=== PATIENT | male | born 1945 | race Caucasian/White ===

== ENCOUNTER 2018-10-07 10:07 | Outpatient (REF) | payer MEDICARE, SELFPAY ==
[2018-10-07 12:59] LABS: Anion Gap 7.2 mmol/L (3-11); BUN 13 mg/dL (7-18); CO2 28.8 mmol/L (21.0-32.0); CREATININE 0.85 mg/dL (0.70-1.30); Calcium 8.9 mg/dL (8.5-10.1); Chloride 105 mmol/L (98-107); Glucose 91 mg/dL (70-100); Magnesium 1.7 mg/dL (1.8-2.4); Potassium 4.7 mmol/L (3.5-5.1); Sodium 141 mmol/L (136-145)
[2018-10-07 16:42] LABS: Iron 105 ug/dL (50-175); Total Iron Binding Capacity 255 ug/dL (250-450); Transferrin Sat 41 % (20-55)
== END 2018-10-07 10:27 ==
LOC: LBN 10:07
PROVIDERS: PCP Family Medicine; Visit Provider Family Medicine
DX: I10 Essential (primary) hypertension; D12.6 Benign neoplasm of colon, unspecified; R25.2 Cramp and spasm
CPT/HCPCS: 80048; 83540; 83550; 83735

== ENCOUNTER 2019-11-05 05:06 | Outpatient (CLI) | payer MEDICARE, SELFPAY ==
[2019-11-05 11:13] LABS: Hemoglobin A1C 5.7 % (<5.7)
[2019-11-05 11:41] LABS: C-Reactive Protein 0.05 mg/dL (0.0-0.3)
[2019-11-05 11:50] LABS: ALT 25 U/L (16-63); AST 22 U/L (15-37); Albumin 3.6 g/dL (3.4-5.0); Alkaline Phosphatase 58 U/L (46-116); Anion Gap 4.1 mmol/L (3-11); BUN 16 mg/dL (7-18); Bilirubin, Total 0.6 mg/dL (0.2-1.0); CO2 33.9 mmol/L (21.0-32.0); CREATININE 0.82 mg/dL (0.70-1.30); Calcium 8.8 mg/dL (8.5-10.1); Chloride 104 mmol/L (98-107); Glucose 84 mg/dL (74-106); Magnesium 1.7 mg/dL (1.8-2.4); Potassium 4.4 mmol/L (3.5-5.1); Sodium 142 mmol/L (136-145); TSH (W/Ref FT4) 2.12 uIU/mL (0.36-3.74); Total Protein 6.3 g/dL (6.4-8.2)
[2019-11-06 09:31] LABS: Prealbumin 22 mg/dL (20-40)
== END 2019-11-05 05:26 ==
PROVIDERS: PCP Family Medicine; Visit Provider Family Medicine
DX: E11.9 Type 2 diabetes mellitus without complications (principal); R63.4 Abnormal weight loss; R25.3 Fasciculation
CPT/HCPCS: 36415; 80053; 83036; 83735; 84134; 84443; 86140

== ENCOUNTER → 2019-12-10 13:56 | Outpatient (BNVA) | payer MEDICARE, OTHER, SELFPAY | PROVIDERS: PCP Family Medicine; Referring Provider Family Medicine; Visit Provider Nurse Practitioner Gerontology | DX: R33.8 Other retention of urine (principal); Z46.6 Encounter for fitting and adjustment of urinary device; I10 Essential (primary) hypertension | CPT/HCPCS: 51702; 81003; 99203; 87086 ==

== ENCOUNTER 2019-12-10 15:46 | Outpatient (REF) | payer MEDICARE, OTHER, SELFPAY | END 2019-12-10 16:06 | LOC: LBO 15:46 | PROVIDERS: PCP Family Medicine; Visit Provider Family Medicine | DX: R39.198 Other difficulties with micturition (principal) | CPT/HCPCS: 87086 ==

== ENCOUNTER → 2019-12-17 08:26 | Outpatient (BNVA) | payer MEDICARE, OTHER, SELFPAY | PROVIDERS: PCP Family Medicine; Referring Provider Family Medicine; Visit Provider Nurse Practitioner Gerontology | DX: R33.8 Other retention of urine (principal); I10 Essential (primary) hypertension; E11.9 Type 2 diabetes mellitus without complications; Z46.6 Encounter for fitting and adjustment of urinary device | CPT/HCPCS: 99203 ==

== ENCOUNTER → 2019-12-19 09:50 | Outpatient (BNVA) | payer MEDICARE, OTHER, SELFPAY | PROVIDERS: PCP Family Medicine; Referring Provider Family Medicine; Visit Provider Urology | DX: R33.8 Other retention of urine (principal); Z46.6 Encounter for fitting and adjustment of urinary device | CPT/HCPCS: 51702; 99213 ==

== ENCOUNTER → 2019-12-25 08:57 | Outpatient (BNVA) | payer MEDICARE, OTHER, SELFPAY | PROVIDERS: PCP Family Medicine; Referring Provider Family Medicine; Visit Provider Urology | DX: R33.8 Other retention of urine (principal); Z46.6 Encounter for fitting and adjustment of urinary device; I10 Essential (primary) hypertension | CPT/HCPCS: 51702; 99213 ==

== ENCOUNTER 2020-01-05 07:29 | Outpatient (CLI) | payer MEDICARE, OTHER, SELFPAY ==
[2020-01-06 15:35] LABS: SARS-CoV-2 RNA Not Detected (NotDetected); SARS-CoV-2 RNA Source Nasal/Nares
== END 2020-01-05 07:49 ==
PROVIDERS: PCP Family Medicine; Visit Provider Urology
DX: Z01.818 Encounter for other preprocedural examination (principal); Z11.59 Encounter for screening for other viral diseases
CPT/HCPCS: U0003

== ENCOUNTER 2020-01-08 06:13 | Inpatient (IN) | payer MEDICARE, OTHER, SELFPAY ==
[2020-01-08] VITALS (13 sets, daily range): BP systolic 106–148; BP diastolic 58–90; PULSE 66–89; RESP 12–28; TEMP 35.9–37; O2SAT 86–100
--- NOTE | 2020-01-08 06:58 | HPE_ITS ---
Date of service: 01/08/20 Time of Service: 06:58 Assessment and Plan Assessment and plan (1) Urinary retention: Status: Acute Assessment and plan: For cystoscopy with transurethral resection of the prostate. I would expect him to remain in the hospital overnight for acute irrigation. History of Present Illness History of Present Illness Chief Complaint: Urinary retention Narrative: This is a 74-year-old gentleman with lower urinary tract symptoms that were treated with alpha-nigel. He went into urinary retention and we increased his dose to the alpha-nigel. He was still unable to void, so he presents now for transurethral resection of the prostate. He was unable to perform CIC, so he has an indwelling urethral catheter. Review of Systems Narrative: No fevers or chills. c/o unexplained weight loss. No vision change or dysphasia No thyroid dysfunction. Hx diabetes No shortness of breath, cough or hemoptysis No chest pain or palpitations No nausea, vomiting, hepatitis, ulcers, jaundice, diarrhea or constipation No seizures, strokes or peripheral neuropathy No bleeding disorders or anemia No gout PFSH Medical History Adenomatous colon polyp adenoma at 70 cm, also at transverse 2009, Fede Dorado; 02/2016: 11 of 11 polyps adenomatous (Dr. Morgan) Allergic asthma without complication (05/25/11) normal PFT 2003; h/o wheezing with occupational and seasonal exposures Dermatitis (09/14/14) ankle, chronic R>L Essential hypertension (07/03/00) rx begun 2000 BP 142/90 and ? of prior TIA Hyperlipidemia LDL goal <100 (03/05/02) Rx begun 2002 for vasc risk calculated 10% plus h/o ? TIA (diplopia 1997), pos FH; goal LDL 100 Lower urinary tract symptoms (LUTS) (11/13/07) urgency, nocturia varies Obesity (BMI 30-39.9) (01/04/15) stable at 35 (wt 220) Seborrheic dermatitis (09/14/14) wade, face, ear Urinary retention Vitamin D deficiency Surgical History (Updated 01/08/20 @ 06:20 by Nan Toledo RN) History of colonoscopy History of facial surgery due to chain saw accident. Family History Mother Diabetes Alzheimer's dementia Father Myocardial infarction Sister No problems noted. Sister No problems noted. Brother Diabetes Brother No problems noted. Brother No problems noted. Social History Smoking/Tobacco Use Status: Never Smoking risk assessment performed?: Yes Alcohol Intake: never Drug use: Never Adopted: No Household members: spouse Housing: house Number of Children: 2 number of grandchildren: 2 Communication Needs: Corrective Lenses Do you need help understanding health information?: Rarely current occupation: retired Current gender identity: male What is your relationship status?: How often do you talk on the phone with friends or family?: twice per week How often do you get together with friends or relatives?: decline to answer How often do you attend shinto or presybeterian services?: decline to answer Do you belong to any clubs or organized social groups?: no Panel score (0-1 are the most socially isolated patients): 1 What type of physical activity do you participate in: walking Duration: 15-30 minutes/day Frequency: daily Seatbelt use: always Helmet use: No Drive intox or ride w/intox 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 Working smoke detector in home: Yes Carbon monox detector in home: Yes Do you feel safe at home: Yes Do you feel safe in your relationship?: Yes Meds Home Medications and Allergies Home Medications Medication Instructions Recorded Confirmed Type aspirin 81 mg PO DAILY tab 06/28/12 01/08/20 History peg 400-propylene glycol [Systane 5 ml OPHTHALMIC DAILY 09/08/13 01/08/20 History 0.3-0.4% Eye Drops] blood-glucose meter [Onetouch #1 kit 07/31/15 01/06/20 History Ultramini] Ketoconazole 15 gm TOPICAL BID #4 tube 08/07/17 01/08/20 Clinic acetaminophen 1,000 mg PO Q8H PRN #90 tab-cap 08/07/17 01/08/20 Rx MDD 3000 cetirizine [Zyrtec] 10 mg PO DAILY PRN #90 tab 08/07/17 01/08/20 History docusate sodium 200 mg PO DAILY PRN #180 cap 08/07/17 01/08/20 History triamcinolone acetonide 1 wilma TOPICAL BID #454 gm 08/07/17 01/08/20 Rx cholecalciferol (vitamin D3) 50 2,000 unit PO DAILY 10/07/18 01/08/20 History mcg (2,000 unit) capsule blood sugar diagnostic #100 each 11/18/18 01/06/20 Rx lancets 33 gauge #100 ea 11/18/18 01/06/20 Rx lisinopril 10 mg tablet 10 mg PO DAILY #90 tab 07/29/19 01/08/20 Rx metformin 500 mg tablet,extended 1,000 mg PO BID #180 tab-cap 07/29/19 01/08/20 Rx release 24 hr simvastatin 40 mg tablet 40 mg PO DAILY #90 tab-cap 07/29/19 01/08/20 Rx albuterol sulfate 90 mcg/actuation 2 puff IH Q6H PRN #18 gm 11/04/19 01/08/20 Rx aerosol inhaler Allergies Allergy/AdvReac Type Severity Reaction Status Date / Time yellow jacket venum Allergy Severe anaphylaxis Uncoded 01/08/20 06:20 Exam Const General: cooperative, comfortable and no acute distress Neck Neck: supple Resp Effort & Inspection: normal respiratory effort Auscultation: clear to auscultation bilaterally Cardio Rate: regular rate Rhythm: regular rhythm GI Palpation: soft and no masses Neuro General: patient alert, patient awake and patient oriented x3 Results Last Vital Signs Temp 36.4 C L 01/08/20 06:16 Pulse 73 01/08/20 06:16 Resp 18 01/08/20 06:16 BP 135/72 01/08/20 06:16 Pulse Ox 98 01/08/20 06:16 COVID-19 Screening Have you,or household,traveled outside [place] in last 14 days?: No Had IN PERSON contact w/suspected or confirmed C-19 person: No
[2020-01-08] MEDS: Lactated Ringers 1,000 ML 80 ML IV ×2 (07:01→10:17)
[2020-01-08] MEDS: GENTAMICIN 120 MG in Normal Saline 100 ML 206 MG IVPB (07:21)
[2020-01-08] MEDS: ceFAZolin 2 GM/50 ML BAG IVPB (07:48)
--- NOTE | 2020-01-08 08:40 | PROST_PTH ---
PATIENT: Robert Alarcon LOC: U#:[id number] AGE/SX: 74/M ROOM: RE01/08/[address]: Timoteo Ordoñez MD : [id number] BED: A DIS: 01/09/2020 SPEC #: [id number] RECD: 01/08/20 12:17 STATUS: SOUT REQ #: [id number] SWETHA: 01/08/20 08:[address]: Timoteo Ordoñez DEPT: Surgical Specimen RECD BY: Marlyn Roberts ENTERED: 01/08/20 12:18 SP TYPE: PROST OTHR DR: Simon Marshall DO Tissues: 1 - PROSTATE CURRETTINGS Procedures: GROSS AND MICRO LEVEL 6 Comments: [id number]
--- NOTE | 2020-01-08 08:56 | W.PM.OP ---
Date of service: 01/08/20 Time of Service: 08:56 Operative Note Operative Note DATE OF PROCEDURE: 01/08/20 PRE-OP DIAGNOSIS: Urinary retention POST-OP DIAGNOSIS: same with pathology pending PROCEDURE: Cystoscopy, transurethral resection of prostate, vaporization of the prostate with bipolar cautery SURGEON: Timoteo Ordoñez ANESTHESIA: BARTOLO ESTIMATED BLOOD LOSS: 200 PATHOLOGY: other (Prostate chips) COMPLICATIONS: None Patient was transported to: PACU Patient's condition: stable Implants: 24 [place] hematuria catheter with 30 cc of sterile water in balloon Indications: Urinary retention refractory to medical management Findings: Trilobar prostate hypertrophy with a prominent median lobe Procedure Description: The patient was brought to the operating room on 01/08/2020. After successful induction of general anesthesia, he was placed in the dorsal lithotomy position. His indwelling catheter was removed. He was given preoperative broad-spectrum IV antibiotics. His genitalia was then prepped and draped. 2% Xylocaine jelly was instilled into the urethra. A 26 B[place]udian resectoscope sheath was passed through the urethra into the bladder. We used a visual obturator and a 30 degree lens to visualize the urethra and bladder. The pendulous, bulbous and membranous urethra was all appeared normal with no strictures. The prostatic urethra showed trilobar hypertrophy with lateral lobe impingement and a prominent median lobe jutting back into the bladder. The bladder itself was mildly trabeculated with no papillary or nodular lesions visualized. No stones were seen. The visual obturator was removed and was replaced with an iBid2Save resectoscope. We resected the prostate from the bladder neck to the verumontanum using bipolar cautery. Our first maneuver was to take down the median lobe. We continued our resection down to the level of the prostatic capsule. Once we approached the prostatic capsule, we switched over to the plasma button and cauterized and vaporize the remaining prostate down to the capsule. At the completion of the procedure, no arterial bleeding was seen. All resected chips were evacuated and sent to pathology for permanent section. The bladder was filled with irrigant. The scope was removed. A 24 [place] hematuria catheter was passed through the urethra into the bladder. The catheter balloon was inflated with 30 cc of sterile water. Continuous bladder irrigation with saline was begun. Traction was placed on the catheter until the irrigant was clear. The patient tolerated this procedure well with no complications. Our estimated blood loss was 200 cc. He was taken to the recovery room in stable condition.
--- NOTE | 2020-01-08 11:19 | NUR.NOTE ---
Nursing Note: Pt admitted to room 210 from PACU. Pt A&Ox3, but sleepy. 3 way vargas running, clear. VSS, see worklist. HR reg, LS clear. dentures in cup @ bedside.
[2020-01-08] MEDS: ceFAZolin 1 GM/50 ML BAG IVPB ×2 (15:12→21:57)
[2020-01-08] MEDS: metFORMIN C.R. 500 MG TABCR 1000 MG PO (17:06)
[2020-01-08] MEDS: Docusate Sodium 100 MG CAP PO (20:44)
[2020-01-08] MEDS: Simvastatin 40 MG TAB PO (20:45)
[2020-01-08] MEDS: Ketoconazole 2% CREAM 15 GM TUBE TP (20:45)
[2020-01-08] MEDS: Lactated Ringers 1,000 ML 100 ML IV (21:56)
[2020-01-09] MEDS: ceFAZolin 1 GM/50 ML BAG IVPB (05:36)
[2020-01-09 06:40] LABS: HCT 39.5 % (40.0-50.0); HGB 12.3 g/dL (13.5-17.5); MCH 30.5 pg (27.0-33.0); MCHC 31.1 % (32.0-36.0); MPV 10.4 fL (8.0-11.0); Platelet Count 227 10^3/uL (130-400); RBC 4.03 10^6/uL (4.36-5.78); RDW 12.7 % (11.8-14.1); RDW-SD 46.1 fL; WBC 11.09 10^3/uL (4.4-10.8)
[2020-01-09 06:59] LABS: Anion Gap 0.7 mmol/L (3-11); BUN 15 mg/dL (7-18); CO2 37.3 mmol/L (21.0-32.0); CREATININE 0.91 mg/dL (0.70-1.30); Calcium 8.2 mg/dL (8.5-10.1); Chloride 103 mmol/L (98-107); Glucose 98 mg/dL (74-106); Potassium 4.8 mmol/L (3.5-5.1); Sodium 141 mmol/L (136-145)
--- NOTE | 2020-01-09 07:18 | W.PM.DS.N ---
Date of service: 01/09/20 Time of Service: 07:18 DS: Diagnosis Discharge Diagnosis (1) Urinary retention: Status: Acute Discharge Plan Disposition Patient Disposition: HOME Condition: Stable Discharge Details Reason For Visit: TURP Admit Date/Time: 01/08/20 06:13 Admit Provider: Timoteo Ordoñez Attending Provider: Timoteo Ordoñez Primary Care Provider: Simon Marshall [facility] Course Hospital Course: The patient was admitted and brought to the operating room on 01/08/2020 where he underwent a transurethral resection of the prostate under general anesthetic. An irrigating catheter was left in place postoperatively. Continuous bladder irrigation was maintained overnight. On the following morning, the irrigant was clear so we discontinued the irrigation and plugged his irrigation port. We hooked his catheter to a leg bag and he is being discharged to home. Home Meds and New Rx's Prescriptions: New tramadol 50 mg Tablet 50 mg PO Q6H PRN PRNQty: 10 RF: 0 cephalexin [Keflex] 500 mg capsule 500 mg PO QHS Qty: 5 RF: 0 No Action albuterol sulfate [ProAir HFA] 90 mcg/actuation HFA aerosol inhaler 2 puff IH Q6H PRN (Reason: shortness of breath or wheezing) Qty: 18 RF: 6 cholecalciferol (vitamin D3) 2,000 unit capsule 2,000 unit PO DAILY RF: 0 aspirin 81 MG tablet,delayed release (DR/EC) 81 mg PO DAILY RF: 0 Systane (propylene glycol) 5 ML drops 5 ml Ophthalmic DAILY RF: 0 (DME) blood-glucose meter [[employer]ink[employer]uch UltraMini] 1 EACH kit 1 ea Miscellaneous DAILY Qty: 1 RF: 0 cetirizine [Zyrtec] 10 MG tablet 10 mg PO DAILY PRNQty: 90 RF: 3 acetaminophen 500 MG tablet 1,000 mg PO Q8H PRN MDD 3000 Qty: 90 RF: 0 triamcinolone acetonide 15 GM cream 1 wilma Topical BID Qty: 454 RF: 3 docusate sodium 100 MG capsule 200 mg PO DAILY PRNQty: 180 RF: 3 Ketoconazole 15 GM CREAM..G. 15 gm Topical BID Qty: 4 RF: 3 (DME) OneTouch Ultra Blue Test Strip Strip See Dose Instructions .ROUTE .MEDSUPPLY Qty: 100 RF: 6 (DME) lancets [OneTouch Delica Lancets] 33 gauge misc 1 ea Miscellaneous DAILY Qty: 100 RF: 6 lisinopril 10 mg tablet 10 mg PO DAILY Qty: 90 RF: 3 metformin 500 mg tablet extended release 24 hr 1,000 mg PO BID Qty: 180 RF: 3 simvastatin 40 mg tablet 40 mg PO DAILY Qty: 90 RF: 3 Discharge Instructions Additional Instructions: Catheter plug to irrigation port Catheter drainage to leg bag Follow-up in my office Sunday or Sunday for catheter removal Follow-up appointment with me in 1 to 2 weeks to review surgical pathology Activity:: No lifting over 10 pounds Equipment/Supplies:: Gonzalez to leg bag Diet:: As Tolerated Discharge Orders Discharge Orders: Discharge Order (Routine); Ordered 01/09/20 Ordered By: Timoteo Ordoñez DS: Summary Status at Discharge Functional status at discharge: independent ambulation Overall status at discharge: patient is back to baseline Mental Status: mental status grossly normal Speech and Movement: speech and movement normal Mood: congruent mood Affect: normal affect Exam Narrative Exam Narrative: On postoperative day #1, he looks well. He does not appear septic or toxic His vital signs are documented elsewhere His lungs are clear Cardiac exam shows a regular rate and rhythm His abdomen is soft with no mass His urine is clear in his catheter bag He is awake and alert Psych Mental Status: mental status grossly normal Speech and Movement: speech and movement normal Mood: congruent mood Affect: normal affect DS: Data Vitals/I&O Vitals and I&O: Vital Signs Temperature 37 C 01/08/20 23:01 Temperature Source Temporal Artery Scan 01/08/20 23:01 Pulse 86 01/08/20 23:01 Pulse Rhythm Regular 01/09/20 06:10 Respiratory Rate 16 01/08/20 23:01 Respiratory Effort Non-Labored 01/09/20 06:10 Respiratory Depth Normal 01/09/20 06:10 Respiratory Pattern Normal 01/09/20 06:10 Blood Pressure 117/64 01/08/20 23:01 Pulse Oximetry 86 L 01/08/20 23:01 Respiratory End-tidal CO2 40 01/08/20 09:51 Oxygen Delivery Method Room Air 01/08/20 23:01 Oxygen Flow Rate 0 01/08/20 23:01 Pain Level 0 01/08/20 23:01 Comment 01/08/20 23:01 Intake & Output 01/08/20 01/08/20 01/09/20 11:59 23:59 11:59 Intake Total 1065.000 / 2810.333 1745.333 / 2810.333 250 / 250 Balance 1065.000 / 2810.333 1745.333 / 2810.333 250 / 250 Weight 70.1 kg Intake: IV 1065.000 / 2090.333 1025.333 / 2090.333 Oral 720 / 720 250 / 250 Other: Urine Color Pale Pale [place] Urine Appearance Clear Clear Clear Comment running Emesis Description None Data Completed and Pending Labs on day of discharge: Labs from last 24 hours 01/09/20 01/09/20 06:20 06:20 WBC 11.09 H RBC 4.03 L Hgb 12.3 L Hct 39.5 L MCV 98.0 H MCH 30.5 MCHC 31.1 L RDW 12.7 Plt Count 227 MPV 10.4 Sodium 141 Potassium 4.8 Chloride 103 Carbon Dioxide 37.3 H Anion Gap 0.7 L BUN 15 Creatinine 0.91 Estimated GFR/1.73 m2 >= 60.00 Glucose 98 Calcium 8.2 L PFSH Medical History Adenomatous colon polyp adenoma at 70 cm, also at transverse 2009, Fede Dorado; 02/2016: 11 of 11 polyps adenomatous (Dr. Morgan) Allergic asthma without complication (05/25/11) normal PFT 2003; h/o wheezing with occupational and seasonal exposures Dermatitis (09/14/14) ankle, chronic R>L Essential hypertension (07/03/00) rx begun 2000 BP 142/90 and ? of prior TIA Hyperlipidemia LDL goal <100 (03/05/02) Rx begun 2002 for vasc risk calculated 10% plus h/o ? TIA (diplopia 1997), pos FH; goal LDL 100 Lower urinary tract symptoms (LUTS) (11/13/07) urgency, nocturia varies Obesity (BMI 30-39.9) (01/04/15) stable at 35 (wt 220) Seborrheic dermatitis (09/14/14) wade, face, ear Urinary retention Vitamin D deficiency Surgical History History of colonoscopy History of facial surgery due to chain saw accident. Family History Mother Diabetes Alzheimer's dementia Father Myocardial infarction Sister No problems noted. Sister No problems noted. Brother Diabetes Brother No problems noted. Brother No problems noted. Social History Smoking/Tobacco Use Status: Never Smoking risk assessment performed?: Yes Alcohol Intake: never Drug use: Never Adopted: No Household members: spouse Housing: house Number of Children: 2 number of grandchildren: 2 Communication Needs: Corrective Lenses Do you need help understanding health information?: Rarely current occupation: retired Current gender identity: male What is your relationship status?: How often do you talk on the phone with friends or family?: twice per week How often do you get together with friends or relatives?: decline to answer How often do you attend mandaeism or uatsdin services?: decline to answer Do you belong to any clubs or organized social groups?: no Panel score (0-1 are the most socially isolated patients): 1 What type of physical activity do you participate in: walking Duration: 15-30 minutes/day Frequency: daily Seatbelt use: always Helmet use: No 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
[2020-01-09] MEDS: Lisinopril 10 MG TAB PO (08:04)
[2020-01-09] MEDS: Cholecalciferol (Vitamin D3) 1,000 UNIT TAB 2000 UNITS PO (08:04)
[2020-01-09] MEDS: Docusate Sodium 100 MG CAP PO (08:04)
[2020-01-09] MEDS: metFORMIN C.R. 500 MG TABCR 1000 MG PO (08:05)
[2020-01-09] MEDS: Normal Saline Flush 10 ML SYR IV (08:05)
[2020-01-09] MEDS: Refresh PLUS Eye Drops 0.4ml OP (08:06)
[2020-01-09 08:12] VITALS: BP 118/78; PULSE 74; RESP 17; TEMP 36.5; O2SAT 86
== END 2020-01-09 10:54 | disposition home or self-care (01) | DRG 714 ==
LOC: PDS 06:21 → MS 10:24
PROVIDERS: Admitting Provider Urology; PCP Family Medicine; Visit Provider Urology
PROC: 0VT08ZZ Resection of Prostate, Via Natural or Artificial Opening Endoscopic (ICD-10-PCS; CPT 52601; principal; 2020-01-08 07:30)
DX: N40.1 Benign prostatic hyperplasia with lower urinary tract symptoms (principal); R33.9 Retention of urine, unspecified; I10 Essential (primary) hypertension; L21.8 Other seborrheic dermatitis; E55.9 Vitamin D deficiency, unspecified; E78.5 Hyperlipidemia, unspecified; J45.909 Unspecified asthma, uncomplicated; E11.9 Type 2 diabetes mellitus without complications
CPT/HCPCS: 52601; 36415; 80048; 85027; 88305; NC; 88309; J0690; J1100; J1580; J1885; J2405; J2704; J3490

== ENCOUNTER → 2020-01-13 08:26 | Outpatient (BNVA) | payer MEDICARE, OTHER, SELFPAY | PROVIDERS: PCP Family Medicine; Referring Provider Family Medicine; Visit Provider Nurse Practitioner Gerontology | DX: R33.8 Other retention of urine (principal); Z46.6 Encounter for fitting and adjustment of urinary device; I10 Essential (primary) hypertension | CPT/HCPCS: 99213 ==

== ENCOUNTER → 2020-01-23 14:45 | Outpatient (BNVA) | payer MEDICARE, OTHER, SELFPAY | PROVIDERS: PCP Family Medicine; Referring Provider Family Medicine; Visit Provider Urology | DX: Z48.816 Encounter for surgical aftercare following surgery on the genitourinary system (principal); R33.8 Other retention of urine; I10 Essential (primary) hypertension ==

== ENCOUNTER 2020-02-19 02:00 | Outpatient (CLI) | payer MEDICARE, OTHER, SELFPAY ==
[2020-02-19 10:47] LABS: Abs Immature Grans 0.01 10^3/uL (0.0-0.06); Absolute Basophil Count 0.05 10^3/uL (0.0-0.2); Absolute Eosinophil Count 0.29 10^3/uL (0.0-0.7); Absolute Lymphocyte Count 1.11 10^3/uL (1.2-3.4); Absolute Monocyte Count 0.44 10^3/uL (0.1-0.8); Absolute Neutrophil Count 2.72 10^3/uL (1.2-6.7); Basophils % 1.1; Eosinophils % 6.3; HCT 44.9 % (40.0-50.0); HGB 13.9 g/dL (13.5-17.5); Immature Grans % 0.2; MCH 30.4 pg (27.0-33.0); MCV 98.2 fL (80-95); MPV 10.6 fL (8.0-11.0); Monocytes % 9.5; Neutrophils % 58.9; Nucleated RBC 0 %; Platelet Count 223 10^3/uL (130-400); RBC 4.57 10^6/uL (4.36-5.78); RDW-SD 46.4 fL; WBC 4.62 10^3/uL (4.4-10.8)
[2020-02-19 12:05] LABS: ALT 16 U/L (16-63); AST 15 U/L (15-37); Albumin 3.6 g/dL (3.4-5.0); Alkaline Phosphatase 58 U/L (46-116); Anion Gap 1.8 mmol/L (3-11); BUN 23 mg/dL (7-18); Bilirubin, Total 0.5 mg/dL (0.2-1.0); CO2 39.2 mmol/L (21.0-32.0); CREATININE 0.85 mg/dL (0.70-1.30); Chloride 101 mmol/L (98-107); Glucose 119 mg/dL (74-106); Lipase 141 U/L (73-393); Potassium 4.6 mmol/L (3.5-5.1); Sodium 142 mmol/L (136-145); Total Protein 6.4 g/dL (6.4-8.2)
[2020-02-19 12:46] LABS: Folate 11.5 ng/mL (8.6-20.0); Vitamin B12 241 pg/mL (193-986)
[2020-02-20 09:57] LABS: Prealbumin 19 mg/dL (20-40)
== END 2020-02-19 02:20 ==
PROVIDERS: PCP Family Medicine; Visit Provider Family Medicine
DX: D53.9 Nutritional anemia, unspecified (principal); R63.4 Abnormal weight loss
CPT/HCPCS: 36415; 80053; 83690; 82607; 82746; 84134; 85025; 86140

== ENCOUNTER 2020-03-15 01:29 | Outpatient (CLI) | payer MEDICARE, OTHER, SELFPAY ==
--- NOTE | 2020-03-15 07:00 | DI.CT_ITS ---
EXAM: CT CHEST/ABD/PEL W CLINICAL HISTORY: Abnormal weight loss,early satiety, GI malignancy?. TECHNIQUE: Imaging Protocol: Axial computed tomography images with coronal and sagittal reformatted images were created and reviewed CONTRAST MATERIAL: Intravenous: Omnipaque 350 Contrast volume:90 Oral: Yes COMPARISON: No exams were available for comparison FINDINGS: CHEST: LUNGS: In the right lung there is a small 3 millimeter calcified granuloma the superior segment right lower lobe. Mild atelectasis is noted in the right lung base. No pleural effusion.. In the opposite-left lung there is mild atelectasis anterior basal segment. No pleural effusions. There are no significant focal findings in the trachea and mainstem bronchi. MEDIASTINUM: There is no hilar nor mediastinal adenopathy. Visualized thyroid unremarkable. CARDIAC: Heart size is normal. There is no pericardial effusion.Caliber of the thoracic aorta is wit hin normal limits. OSSEOUS: No significant osseous lesions.. ABDOMEN: There is no ascites. LIVER: Liver is mildly hypodense implying an element of steatosis. However, there is no discrete brad nous focal hepatic lesions identified. GALLBLADDER/BILIARY: No obvious gallbladder pathology. CBD is not dilated. PANCREAS: No evidence of pancreatic mass nor dilatation of the pancreatic duct. SPLEEN: Spleen is not enlarged. There are no intrasplenic lesions. Splenic and portal veins are alexander nt. ADRENALS: There are no significant adrenal masses. KIDNEYS: No calculi nor hydronephrosis. No solid renal masses. No cysts evident. ABDOMINAL AORTA: Abdominal aorta is not enlarged and there is no iycvzpanjzipnmr-hovm-cdzbii adenopat hy. IVC: There is an anatomic variant here. 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 The common iliac veins do not joint up but instead ascend independently in both size of the aorta. The left IVC drains into the left magdalena al vein, as is usually the case. ABDOMINAL WALL/GI: No evidence of significant anterior abdominal wall hernia. No bowel obstruction. PELVIS: LYMPH NODES: There is no intrapelvic nor inguinal adenopathy. GI: No evidence of appendicitis.No evidence of sigmoid diverticulitis. URINARY BLADDER: Bladder wall is uniformly thickened. This may be in part due to distension but also chronic cystitis. There are no diverticula in the bladder. REPRODUCTIVE: Prostate gland is enlarged and exhibits a probable TURP defect. OSSEOUS: No significant osseous lesions. Chronic degenerative disc disease L5-S1. IMPRESSION: 1. Mild chest findings as described above.. No ominous lung nodules. No pleural effusions. No sign ificant intrathoracic adenopathy. 2. Mild hepatic steatosis. No discrete focal hepatic lesions. 3. No ascites nor intrathoracic adenopathy. 4. Urinary bladder wall is uniformly thickened and the prostate gland is enlarged and exhibits probab le TURP defect. Probable chronic cystitis. There are no diverticuli in the bladder noted. RADIATION DOSE DELIVERED: 1,286.01mGy.cm Total DLP DATA REPOSITORY: All CT scans at this facility are submitted to the National Radiology Data Registry (NRDR) Dose Index Registry (DIR) with the [employer] (A[employer]). RADIATION OPTIMIZATION: All CT scans at this facility use at least one of these dose optimization te chniques: automated exposure control; mA and/or kV adjustment per patient size (includes targeted exa ms where dose is matched to clinical indication); or iterative reconstruction.
[2020-03-15] MEDS: Omnipaque 350 MG/ML 50 ML BTL PO (07:21)
[2020-03-15] MEDS: Breeza Beverage 473 ML BTL PO (07:21)
[2020-03-15] MEDS: Omnipaque 350 MG/ML 100 ML BTL IJ (09:21)
[2020-03-15] MEDS: Normal Saline - Diluent 50 ML VIAL IV (09:21)
== END 2020-03-15 01:49 ==
PROVIDERS: PCP Family Medicine; Visit Provider Family Medicine
DX: K76.0 Fatty (change of) liver, not elsewhere classified (principal); N40.0 Benign prostatic hyperplasia without lower urinary tract symptoms; R63.4 Abnormal weight loss; J84.10 Pulmonary fibrosis, unspecified; J98.11 Atelectasis
CPT/HCPCS: 74177; 71260; J3490; Q9967

== ENCOUNTER 2020-03-19 12:10 | Inpatient (IN) | payer MEDICARE, OTHER, SELFPAY ==
[2020-03-19] VITALS (85 sets, daily range): BP systolic 89–142; BP diastolic 48–104; PULSE 61–129; RESP 11–33; TEMP 36.6–36.9; O2SAT 86–98
--- NOTE | 2020-03-19 12:15 | RT.EKG_ITS ---
APPROVED REPORT Exam: Resting ECG Patient Location: E HR:78 bpm ECG Measurements Heart Rate 78 AXIS ND 167 P 69 QRSd 87 QRS 71 QT 363 T 52 QTc 413 Conclusion Sinus rhythm...normal P axis, V-rate 60- 99
--- NOTE | 2020-03-19 12:30 | DI.CT_ITS ---
EXAM: CT HEAD - STROKE PROTOCOL CLINICAL HISTORY: mental status change. TECHNIQUE: Imaging Protocol: Axial computed tomography images with coronal and sagittal reformatted images were created and reviewed COMPARISON: CR XR PORTABLE CHEST AP from 03/19/2020 CR XR PORTABLE CHEST AP from 03/19/2020 FINDINGS: There are no skull fractures nor fluid in the visualized paranasal sinuses. There is no evidence of intracranial hemorrhage, mass effect, or shift of midline structures. There are no extra-axial fluid collections. The ventricles are not enlarged or shifted and there is no blo od within the ventricular system nor within the basal cisterns. IMPRESSION: No acute intracranial findings on this noninfused CT scan of the brain. Report called to ER RADIATION DOSE DELIVERED: 797.21mGy.cm Total DLP DATA REPOSITORY: All CT scans at this facility are submitted to the National Radiology Data Registry (NRDR) Dose Index Registry (DIR) with the [employer] (ACR). RADIATION OPTIMIZATION: All CT scans at this facility use at least one of these dose optimization te chniques: automated exposure control; mA and/or kV adjustment per patient size (includes targeted exa ms where dose is matched to clinical indication); or iterative reconstruction.
--- NOTE | 2020-03-19 12:48 | DI.RAD_ITS ---
EXAM: XR PORTABLE CHEST AP CLINICAL HISTORY: unresponsive. TECHNIQUE: 2D digital imaging was performed. COMPARISON: No exams were available for comparison FINDINGS: Heart size is normal. The mediastinum is not widened. Platelike atelectasis and mild increased markings are noted in the right lung base. Remainder of dariusz g tuttle appear clear. No pneumothorax. Tiny granuloma in the lateral right upper lobe noted. IMPRESSION: Mild increased markings in the right lung base consistent with platelike atelectasis. DATA REPOSITORY: RADIATION DOSE DELIVERED:
--- NOTE | 2020-03-19 12:51 | W.ED.GENAD ---
Discharge Plan Disposition Patient Disposition: [facility] INPATIENT Condition: Critical Discharge Details Clinical Impression: Respiratory failure, Motor neuron disease Admit Date/Time: 03/19/20 14:54 Admit Provider: Wild Garner Attending Provider: Wild Garner Primary Care Provider: Simon Marshall ED Provider: M[place]n [place] Medical Decision Making <JORGE Perez - Last Filed: 03/19/20 16:23> Patient initially obtunded. Blood glucose 120 initially. +able to follow several basic commands initially. sent for stroke protocol.neg ct brain. co2 .100 likely consistent with hypercarbia. Patient is DNR/DNI after discussion with , it was confirmed that patient is not full CODE STATUS. Patient would likely benefit from positive pressure, he was initiated on BiPAP, we did consider that she is obtunded and there is risk associated and confirms that she would like to proceed with the BiPAP and we will monitor patient quite closely The remainder of the diagnostics do not show acute pathology, he will benefit from admission to the hospital My suspicion for CVA is quite low but patient had a negative CTA and significant hypercarbia. Chest x-ray does not show acute pathology EKG not consistent with A. fib although patient has known history is agreeable to him being admitted to the hospital provided patient becomes more lucid with application of BiPAP All decisions are made in the presence of pH of 7.13, PCO2 greater than 100, PO2 150, carbon dioxide of 42.7 gap of 0.7, BUN of 31+ Patient blood pressure approximately 1545 became hypotensive, 70/40, 1 L bolus was administered and patient blood pressure the came 108/80, he subsequently developed some bradycardia, distal sinus bradycardia without evidence of heart block After consultation with my attending physician, turned positive BiPAP pressure down from 15-13 over 5 and patient actually is now in a regular sinus rhythm His mentation has mildly improved I did relay the results to admitting hospitalist, Dr. Henry via pager and agreeable to admission I reconfirmed with regarding CODE STATUS and at this time she would like to maintain the DNR status Blood pressure at time of transfer to ICU laterally over 62, heart rate 62+ Case discussed with Dr Roger, attending physician <Akira Roger MD - Last Filed: 03/19/20 13:05> Patient seen, independently examined [id number], and discussed with Ms. Durans. I agree with their assessment and plan. HPI <JORGE Perez - Last Filed: 03/19/20 16:23> 74-year-old gentleman with recent diagnosis of ALS, diabetes, atrial fibrillation, asthma, essential hypertension, urinary tract infection and Eliquis dependent, presents with reported hypoxia and possible alteration of mental for which began at an unknown time. states patient he was very delayed communicative. She denies any known falls or injuries. She denies any new medications. She states that he was heavily according prostate surgery several months ago. She does states she was able to bring him to a neurology appointment today and secondary to a change in mental status and hypoxia, he was transported via EMS to the emergency department. At this time, patient is a poor historian and history was largely obtained through provider patient at neurology clinic in patient's life. General Date/Time Provider Initiated Documentation: 03/19/20 12:11. Related Data Home Medications Medication Instructions Recorded Confirmed aspirin 81 mg PO DAILY tab 06/28/12 03/19/20 peg 400-propylene glycol [Systane 5 ml OPHTHALMIC DAILY 09/08/13 03/19/20 0.3-0.4% Eye Drops] acetaminophen 1,000 mg PO Q8H PRN #90 tab-cap 08/07/17 03/19/20 MDD 3000 cetirizine [Zyrtec] 10 mg PO DAILY PRN #90 tab 08/07/17 03/19/20 docusate sodium 200 mg PO DAILY PRN #180 cap 08/07/17 03/19/20 triamcinolone acetonide 1 wilma TOPICAL BID #454 gm 08/07/17 03/19/20 cholecalciferol (vitamin D3) 50 2,000 unit PO DAILY 10/07/18 03/19/20 mcg (2,000 unit) capsule blood sugar diagnostic #100 each 11/18/18 03/19/20 lancets 33 gauge #100 ea 11/18/18 03/19/20 lisinopril 10 mg tablet 10 mg PO DAILY #90 tab 07/29/19 03/19/20 simvastatin 40 mg tablet 40 mg PO DAILY #90 tab-cap 07/29/19 03/19/20 albuterol sulfate 90 mcg/actuation 2 puff IH Q6H PRN #18 gm 11/04/19 03/19/20 aerosol inhaler metformin 500 mg tablet,extended 1,000 mg PO BID #180 tab-cap 01/26/20 03/19/20 release 24 hr Previous Rx's Medication Instructions Recorded acetaminophen 1,000 mg PO Q8H PRN #90 tab-cap 08/07/17 MDD 3000 triamcinolone acetonide 1 wilma TOPICAL BID #454 gm 08/07/17 blood sugar diagnostic #100 each 11/18/18 lancets 33 gauge #100 ea 11/18/18 lisinopril 10 mg tablet 10 mg PO DAILY #90 tab 07/29/19 simvastatin 40 mg tablet 40 mg PO DAILY #90 tab-cap 07/29/19 albuterol sulfate 90 mcg/actuation 2 puff IH Q6H PRN #18 gm 11/04/19 aerosol inhaler metformin 500 mg tablet,extended 1,000 mg PO BID #180 tab-cap 01/26/20 release 24 hr Allergies Allergy/AdvReac Type Severity Reaction Status Date / Time yellow jacket venum Allergy Severe anaphylaxis Uncoded 03/19/20 15:11 General Stated Complaint: AMS/LOC ERIK: 2 <Akira Roger MD - Last Filed: 03/19/20 13:05> 74-year-old gentleman with recent diagnosis of ALS, diabetes, atrial fibrillation, asthma, essential hypertension, urinary tract infection and Eliquis dependent, presents with reported hypoxia and possible alteration of mental for which began at an unknown time. states patient he was very delayed communicative. She denies any known falls or injuries. She denies any new medications. She states that he was heavily according prostate surgery several months ago. She does states she was able to bring him to a neurology appointment today and secondary to a change in mental status and hypoxia, he was transported via EMS to the emergency department. At this time, patient is a poor historian and history was largely obtained through provider patient at neurology clinic in patient's life. Review of Systems <JORGE Perez - Last Filed: 03/19/20 16:23> Unobtainable due to mental status PFSH <JORGE Perez - Last Filed: 03/19/20 16:23> Medical History (Updated 03/19/20 @ 14:56 by JORGE Perez) Abnormal weight loss Adenomatous colon polyp adenoma at 70 cm, also at transverse 2010, Fede Dorado; 02/2016: 11 of 11 polyps adenomatous (Dr. Morgan) Allergic asthma without complication (05/25/11) normal PFT 2003; h/o wheezing with occupational and seasonal exposures Dermatitis (09/14/14) ankle, chronic R>L Essential hypertension (07/03/00) rx begun 2000 BP 142/90 and ? of prior TIA Hyperlipidemia LDL goal <100 (03/05/02) Rx begun 2002 for vasc risk calculated 10% plus h/o ? TIA (diplopia 1997), pos FH; goal LDL 100 Lower urinary tract symptoms (LUTS) (11/13/07) urgency, nocturia varies Motor neuron disease Obesity (BMI 30-39.9) (01/04/15) stable at 35 (wt 220) Seborrheic dermatitis (09/14/14) wade, face, ear Urinary retention Vitamin D deficiency Surgical History History of colonoscopy History of facial surgery due to chain saw accident. Family History Mother Diabetes Alzheimer's dementia Father Myocardial infarction Sister No problems noted. Sister No problems noted. Brother Diabetes Brother No problems noted. Brother No problems noted. Social History Smoking/Tobacco Use Status: Never Smoking risk assessment performed?: Yes Alcohol Intake: never Drug use: Never Adopted: No Household members: spouse Housing: house Number of Children: 2 number of grandchildren: 2 Communication Needs: Corrective Lenses Do you need help understanding health information?: Rarely current occupation: retired Current gender identity: male What is your relationship status?: How often do you talk on the phone with friends or family?: twice per week How often do you get together with friends or relatives?: decline to answer How often do you attend mandaen or buddhist services?: decline to answer Do you belong to any clubs or organized social groups?: no Panel score (0-1 are the most socially isolated patients): 1 What type of physical activity do you participate in: walking Duration: 15-30 minutes/day Frequency: daily Seatbelt use: always Helmet use: No Drive intox or ride w/intox 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 Working smoke detector in home: Yes Carbon monox detector in home: Yes Do you feel safe at home: Yes Do you feel safe in your relationship?: Yes Exam <JORGE Perez Last Filed: 03/19/20 16:23> Const Orientation: confused and obtunded Limitations: altered mental status HENMT Head: normal to inspection Mouth: oral mucosae normal, moist mucous membranes abnormal and oral mucosa abnormal Eyes General: appearance normal, both eyes and all related structures Pupils: PERRL Chest Chest: normal inspection of the chest Resp Effort & Inspection: no audible wheezes, no grunting, not labored and no pursed lip breathing Auscultation: diminished lung sounds Cardio Rate: regular rate Rhythm: regular rhythm Pulses: radial pulses present and femoral pulses present GI Inspection: normal to inspection Skin General skin exam: no rashes or lesions noted Neuro General: patient alert, not oriented x3 and patient obtunded Cranial Nerves: tongue midline Cognition: abnormal cognition Speech: abnormal speech Motor: strength abnormal Pupils: Normal pupillary reactivity/response: bilateral Course <JORGE Perez Last Filed: 03/19/20 16:23> Vital Signs Vital signs: Vital Signs Temperature 36.7 C 03/19/20 12:25 Pulse 76 03/19/20 12:25 Respiratory Rate 16 03/19/20 12:25 Blood Pressure 123/79 03/19/20 12:25 Pulse Oximetry 97 03/19/20 12:25 Temperature 36.7 C 03/19/20 12:25 Temperature Source Tympanic 03/19/20 12:25 Pulse 76 03/19/20 12:25 Respiratory Rate 16 03/19/20 12:25 Blood Pressure 123/79 03/19/20 12:25 Blood Pressure Position Supine 03/19/20 12:25 Pulse Oximetry 97 03/19/20 12:25 Oxygen Delivery Method Nasal Cannula 03/19/20 12:25 Oxygen Flow Rate 2 03/19/20 12:25 Pain Level 0 03/19/20 12:25 Critical Care Time <JORGE Perez Last Filed: 03/19/20 16:23> Critical Care Time Critical Care Time: Yes Total Critical Care Time: 45 Attestation: Approximately 45 minutes of critical care time was performed in the ED hypercarbic respiratory failure and acute encephalopathy please see MDM for further documentation
[2020-03-19 12:58] LABS: Lipase 173 U/L (73-393)
[2020-03-19 13:12] LABS: pO2 150 mmHg (80-105); sO2 99 % (95-98)
[2020-03-19 13:14] LABS: Creatine Kinase 15 U/L (39-308)
[2020-03-19 13:18] LABS: Abs Immature Grans 0.02 10^3/uL (0.0-0.06); Absolute Basophil Count 0.04 10^3/uL (0.0-0.2); Absolute Eosinophil Count 0.02 10^3/uL (0.0-0.7); Absolute Lymphocyte Count 1.23 10^3/uL (1.2-3.4); Absolute Monocyte Count 0.66 10^3/uL (0.1-0.8); Absolute Neutrophil Count 3.59 10^3/uL (1.2-6.7); Basophils % 0.7; Eosinophils % 0.4; HCT 50.3 % (40.0-50.0); HGB 15.1 g/dL (13.5-17.5); Immature Grans % 0.4; Lymphocytes % 22.1; MCH 30.4 pg (27.0-33.0); MCV 101.4 fL (80-95); MPV 10.9 fL (8.0-11.0); Monocytes % 11.9; Neutrophils % 64.5; Nucleated RBC 0 %; Platelet Count 233 10^3/uL (130-400); RBC 4.96 10^6/uL (4.36-5.78); RDW 13.2 % (11.8-14.1); RDW-SD 49.5 fL; WBC 5.56 10^3/uL (4.4-10.8)
[2020-03-19 13:19] LABS: Site Right Radial
[2020-03-19 13:20] LABS: FIO2L 2L NC L
[2020-03-19 13:31] LABS: ALT 21 U/L (16-63); AST 16 U/L (15-37); Albumin 3.6 g/dL (3.4-5.0); Alkaline Phosphatase 47 U/L (46-116); Anion Gap -0.7 mmol/L (3-11); BUN 31 mg/dL (7-18); Bilirubin, Total 0.4 mg/dL (0.2-1.0); CO2 42.7 mmol/L (21.0-32.0); Calcium 8.8 mg/dL (8.5-10.1); Chloride 101 mmol/L (98-107); Glucose 138 mg/dL (74-106); Potassium 4.4 mmol/L (3.5-5.1); Sodium 143 mmol/L (136-145); Total Protein 6.8 g/dL (6.4-8.2)
[2020-03-19 13:33] LABS: INR 1.1 (0.9-1.1); PTT Activated 24.3 sec (21.0-27.5)
--- NOTE | 2020-03-19 13:48 | RESPIRATORY ---
RT called to do ABG, patient obtuned and required BiPap to blow off high CO2 level. RT started Bipap 13/5 Peep 5 FiO2 30%
[2020-03-19 13:49] LABS: Bilirubin Small (Negative); Blood Small (Negative); Clarity Sl Cloudy (Clear); Glucose Negative (Negative); Ketones Negative (Negative); Leukocyte Esterase Trace (Negative); Nitrite Negative (Negative); Specific Gravity >= 1.030 (1.005-1.025); pH 5.5 (5-8)
[2020-03-19 13:59] LABS: Bacteria Many HPF (Negative); Crystals Negative HPF (Negative); Epithelial Cells Few HPF (Negative); Mucus Heavy (Negative); Other Cells Few Renal (Negative); RBC >50 HPF (0-2); WBC >50 HPF (0-5)
[2020-03-19 14:00] LABS: C & S Indicated? Yes
[2020-03-19] MEDS: Normal Saline 250 ML 500 ML IV (14:15)
[2020-03-19 14:26] LABS: Source Nasopharynx
[2020-03-19 14:35] LABS: pO2 82 mmHg (80-105); sO2 94 % (95-98)
[2020-03-19 14:36] LABS: pH 7.13 (7.35-7.45)
[2020-03-19 14:37] LABS: pCO2 > 100 mmHg (35-45)
[2020-03-19 14:39] LABS: pH 7.15 (7.35-7.45)
[2020-03-19 14:40] LABS: FIO2 32 %; Site Right Radial
[2020-03-19 15:16] LABS: COVID-19 PCR Negative (Negative); Influenza A PCR Negative (Negative); Influenza B PCR Negative (Negative); RSV PCR Negative (Negative)
[2020-03-19 15:28] LABS: Troponin I < 0.05 ng/mL (<0.06)
--- NOTE | 2020-03-19 15:45 | RT.EKG_ITS ---
APPROVED REPORT Exam: Resting ECG Patient Location: E HR:50 bpm ECG Measurements Heart Rate 50 AXIS SD 159 P 68 QRSd 87 QRS 79 QT 419 T 66 QTc 381 Conclusion Sinus bradycardia...rate< 60 Anteroseptal infarct, age indeterminate...Q >35mS, T neg, V1-V2
[2020-03-19] MEDS: Normal Saline 1,000 ML 1000 ML IV ×2 (15:51→18:15)
[2020-03-19 17:02] LABS: pH 7.22 (7.35-7.45); pO2 97 mmHg (80-105); sO2 97 % (95-98)
[2020-03-19 17:04] LABS: FIO2 32 %; FIO2L BIPAP 16/5 L; Site Left Radial; pCO2 > 100 mmHg (35-45)
[2020-03-19] MEDS: Lactated Ringers 1,000 ML 85 ML IV (17:30)
[2020-03-19] MEDS: Enoxaparin 40 MG/0.4 ML SYR SC (17:52)
--- NOTE | 2020-03-19 18:34 | HPE_ITS ---
Date of service: 03/19/20 Time of Service: 18:34 Assessment and Plan Assessment and plan (1) Respiratory failure with hypoxia and hypercapnia: Status: Acute Assessment and plan: suportive care w/ NIPPV, however, given that his PCO2 remains over 100 mm despite being on BIPAP all afternoon, I do not expect that this will turn the patient around and he will from respiratory failure from generalized muscle weakness from his neurologic illness. Qualifiers: Chronicity: acute Qualified Code(s): J96.01 - Acute respiratory failure with hypoxia; J96.02 - Acute respiratory failure with hypercapnia (2) ALS (amyotrophic lateral sclerosis): Status: Suspected Assessment and plan: suspected d/t recent EMG/NCT studies performed by Dr. Ventura Salas from [facility]. However, according to Dr. Marshall further studies were recommended including SPEP, CPK, aldolase, anti-MAG and and anti-GM1 antibodies. History of Present Illness History of Present Illness Chief Complaint: decreased mental status Narrative: 74 yr old male w/ PMH of diabetes mellitus, HTN, atrial fibrillation, who was recently diagnosed w/ ALS. Patient was sent here via EMS from Dr. Marshall's office ([facility]) due to rapid decreased level of consciousness . Per his , who is with him and provided details of his workup of his ALS, the patient began w/ symptoms of 100# wt loss since July 2019, and progressive weakness. His indicated that she took him to Dr. Salas who did NCT/EMG and diagnosed him w/ A.L.S. Today she took her to Dr. Marshall d/t increasing weakness. He was to have some additional testing to confirm the diagnosis. However when they went to leave he was somnolent, and unable to get up out of the chair. He was noted to be hypoxemic w SPO2 in the 70% range. She states that over the past week he went from walking and doing his own ADL's to being unable to open the cat food cans and feeing their cats. Upon arrival to the ER he was found to be able to open his eyes but otherwise was somnolent and workup revealed ph 7.11 and pCO2 >100 mm, CT head w/out contrast showed no acute intracranial pathology. CXR demonstrated right basilar atelectasis. Patient was put on BIPAP 15/5 cm and FiO2 of 32 %. Patient developed hypotensive w/ SBP in the 70's and bradycardia and recieved bolus of 1 L NS. Patient's indicated that he would not want to be intubated and put on mechanical ventilation particularly if it would not improve the quality of his life. However she agreed to trial of BIPAP. Patient is now admitted for NIPPV however it is expected that he will continue to decline. Palliative care consult will be obtained in the a.m. Review of Systems All systems reviewed & are unremarkable except as noted in HPI and below PFSH Medical History Abnormal weight loss Adenomatous colon polyp adenoma at 70 cm, also at transverse 2010, Fede Dorado; 02/2016: 11 of 11 polyps adenomatous (Dr. Morgan) Allergic asthma without complication (05/25/11) normal PFT 2003; h/o wheezing with occupational and seasonal exposures Dermatitis (09/14/14) ankle, chronic R>L Essential hypertension (07/03/00) rx begun 2000 BP 142/90 and ? of prior TIA Hyperlipidemia LDL goal <100 (03/05/02) Rx begun 2002 for vasc risk calculated 10% plus h/o ? TIA (diplopia 1997), pos FH; goal LDL 100 Lower urinary tract symptoms (LUTS) (11/13/07) urgency, nocturia varies Motor neuron disease Obesity (BMI 30-39.9) (01/04/15) stable at 35 (wt 220) Seborrheic dermatitis (09/14/14) wade, face, ear Urinary retention Vitamin D deficiency Surgical History History of colonoscopy History of facial surgery due to chain saw accident. Family History Mother Diabetes Alzheimer's dementia Father Myocardial infarction Sister No problems noted. Sister No problems noted. Brother Diabetes Brother No problems noted. Brother No problems noted. Social History Smoking/Tobacco Use Status: Never Smoking risk assessment performed?: Yes Alcohol Intake: never Drug use: Never Adopted: No Household members: spouse Housing: house Number of Children: 2 number of grandchildren: 2 Communication Needs: Corrective Lenses Do you need help understanding health information?: Rarely current occupation: retired Current gender identity: male What is your relationship status?: How often do you talk on the phone with friends or family?: twice per week How often do you get together with friends or relatives?: decline to answer How often do you attend baptism or gnosticist services?: decline to answer Do you belong to any clubs or organized social groups?: no Panel score (0-1 are the most socially isolated patients): 1 What type of physical activity do you participate in: walking Duration: 15-30 minutes/day Frequency: daily Seatbelt use: always Helmet use: No Drive intox or ride w/intox dray truck driver: No Working smoke detector in home: Yes Carbon monox detector in home: Yes Do you feel safe at home: Yes Do you feel safe in your relationship?: Yes Meds Home Medications and Allergies Home Medications Medication Instructions Recorded Confirmed Type aspirin 81 mg PO DAILY tab 06/28/12 03/19/20 History peg 400-propylene glycol [Systane 5 ml OPHTHALMIC DAILY 09/08/13 03/19/20 History 0.3-0.4% Eye Drops] Ketoconazole 15 gm TOPICAL BID #4 tube 08/07/17 03/19/20 Clinic acetaminophen 1,000 mg PO Q8H PRN #90 tab-cap 08/07/17 03/19/20 Rx MDD 3000 cetirizine [Zyrtec] 10 mg PO DAILY PRN #90 tab 08/07/17 03/19/20 History docusate sodium 200 mg PO DAILY PRN #180 cap 08/07/17 03/19/20 History triamcinolone acetonide 1 wilma TOPICAL BID #454 gm 08/07/17 03/19/20 Rx cholecalciferol (vitamin D3) 50 2,000 unit PO DAILY 10/07/18 03/19/20 History mcg (2,000 unit) capsule blood sugar diagnostic #100 each 11/18/18 03/19/20 Rx lancets 33 gauge #100 ea 11/18/18 03/19/20 Rx lisinopril 10 mg tablet 10 mg PO DAILY #90 tab 07/29/19 03/19/20 Rx simvastatin 40 mg tablet 40 mg PO DAILY #90 tab-cap 07/29/19 03/19/20 Rx albuterol sulfate 90 mcg/actuation 2 puff IH Q6H PRN #18 gm 11/04/19 03/19/20 Rx aerosol inhaler metformin 500 mg tablet,extended 1,000 mg PO BID #180 tab-cap 01/26/20 03/19/20 Rx release 24 hr Allergies Allergy/AdvReac Type Severity Reaction Status Date / Time yellow jacket venum Allergy Severe anaphylaxis Uncoded 03/19/20 15:11 Exam Narrative Exam Narrative: Patient is somnolent, respirations are shallow, non-labored; patient is unresponsive to verbal nor to tactile stimulation Lungs w/ diminished breath sounds, shallow respirations Heart is regular, bradycardic, no murmur Abdomen is non-distended, decreased bowel sounds, nontender Extremities w/ peripheral cyanosis nor edema Neuro: nonresponsive, no withdrawal to even noxious stimulation; GSC 3 Results Labs Result diagrams: 03/19/20 12:45 03/19/20 12:45 Labs: Laboratory Results - last 24 hr 03/19/20 03/19/20 03/19/20 12:45 12:45 12:45 WBC 5.56 RBC 4.96 Hgb 15.1 Hct 50.3 H MCV 101.4 H MCH 30.4 MCHC 30.0 L RDW 13.2 Plt Count 233 MPV 10.9 Immature Gran % 0.4 Neutrophils % 64.5 Lymphocytes % 22.1 Monocytes % 11.9 Eosinophils % 0.4 Basophils % 0.7 Nucleated RBC % 0 Absolute Neutrophils 3.59 Absolute Lymphocytes 1.23 Absolute Monocytes 0.66 Absolute Eosinophils 0.02 Absolute Basophils 0.04 PT INR APTT ABG Sample Site ABG pH ABG pCO2 ABG pO2 ABG HCO3 ABG Total CO2 ABG O2 Saturation ABG Base Excess Oxygen Liter Flow FiO2 Sodium 143 Potassium 4.4 Chloride 101 Carbon Dioxide 42.7 H Anion Gap -0.7 L BUN 31 H Creatinine 0.80 Estimated GFR/1.73 m2 >= 60.00 Glucose 138 H Calcium 8.8 Total Bilirubin 0.4 AST 16 ALT 21 Alkaline Phosphatase 47 Creatine Kinase Troponin I Total Protein 6.8 Albumin 3.6 Lipase 173 Urine Color Urine Clarity Urine pH Ur Specific [place] Urine Protein Urine Ketones Urine Blood Urine Nitrite Urine Bilirubin Urine Urobilinogen Ur Leukocyte Esterase Urine RBC Urine WBC Ur Epithelial Cells Urine Crystals Urine Bacteria Urine Casts Urine Mucus Urine Other Ur Culture Indicated? Urine Glucose COVID-19 Source SARS-CoV-2 (PCR) Influenza Type A (PCR) Influenza Type B (PCR) RSV (PCR) 03/19/20 03/19/20 03/19/20 12:45 12:45 12:45 WBC RBC Hgb Hct MCV MCH MCHC RDW Plt Count MPV Immature Gran % Neutrophils % Lymphocytes % Monocytes % Eosinophils % Basophils % Nucleated RBC % Absolute Neutrophils Absolute Lymphocytes Absolute Monocytes Absolute Eosinophils Absolute Basophils PT 11.0 INR 1.1 APTT 24.3 ABG Sample Site ABG pH ABG pCO2 ABG pO2 ABG HCO3 ABG Total CO2 ABG O2 Saturation ABG Base Excess Oxygen Liter Flow FiO2 Sodium Potassium Chloride Carbon Dioxide Anion Gap BUN Creatinine Estimated GFR/1.73 m2 Glucose Calcium Total Bilirubin AST ALT Alkaline Phosphatase Creatine Kinase 15 L Troponin I < 0.05 Total Protein Albumin Lipase Urine Color Urine Clarity Urine pH Ur Specific [place] Urine Protein Urine Ketones Urine Blood Urine Nitrite Urine Bilirubin Urine Urobilinogen Ur Leukocyte Esterase Urine RBC Urine WBC Ur Epithelial Cells Urine Crystals Urine Bacteria Urine Casts Urine Mucus Urine Other Ur Culture Indicated? Urine Glucose COVID-19 Source SARS-CoV-2 (PCR) Influenza Type A (PCR) Influenza Type B (PCR) RSV (PCR) 03/19/20 03/19/20 03/19/20 13:10 13:35 14:00 WBC RBC Hgb Hct MCV MCH MCHC RDW Plt Count MPV Immature Gran % Neutrophils % Lymphocytes % Monocytes % Eosinophils % Basophils % Nucleated RBC % Absolute Neutrophils Absolute Lymphocytes Absolute Monocytes Absolute Eosinophils Absolute Basophils PT INR APTT ABG Sample Site Right radial ABG pH 7.13 L* ABG pCO2 > 100 H* ABG pO2 150 H ABG HCO3 ABG Total CO2 ABG O2 Saturation 99 H ABG Base Excess Oxygen Liter Flow 2l nc FiO2 Sodium Potassium Chloride Carbon Dioxide Anion Gap BUN Creatinine Estimated GFR/1.73 m2 Glucose Calcium Total Bilirubin AST ALT Alkaline Phosphatase Creatine Kinase Troponin I Total Protein Albumin Lipase Urine Color Yellow Urine Clarity Sl cloudy Urine pH 5.5 Ur Specific [place] >= 1.030 H Urine Protein 100 H Urine Ketones Negative Urine Blood Small H Urine Nitrite Negative Urine Bilirubin Small H Urine Urobilinogen 1.0 H Ur Leukocyte Esterase Trace H Urine RBC >50 H Urine WBC >50 H Ur Epithelial Cells Few Urine Crystals Negative Urine Bacteria Many Urine Casts Urine Mucus Heavy Urine Other Few renal Ur Culture Indicated? Yes Urine Glucose Negative COVID-19 Source Nasopharynx SARS-CoV-2 (PCR) Negative Influenza Type A (PCR) Negative Influenza Type B (PCR) Negative RSV (PCR) Negative 03/19/20 03/19/20 03/19/20 14:30 16:58 17:59 WBC RBC Hgb Hct MCV MCH MCHC RDW Plt Count MPV Immature Gran % Neutrophils % Lymphocytes % Monocytes % Eosinophils % Basophils % Nucleated RBC % Absolute Neutrophils Absolute Lymphocytes Absolute Monocytes Absolute Eosinophils Absolute Basophils PT INR APTT ABG Sample Site Right radial Left radial ABG pH 7.15 L* 7.22 L ABG pCO2 > 100 H* > 100 H* ABG pO2 82 97 ABG HCO3 ABG Total CO2 ABG O2 Saturation 94 L 97 ABG Base Excess Oxygen Liter Flow Bipap 13/5 Bipap 16/5 FiO2 32 32 Sodium Potassium Chloride Carbon Dioxide Anion Gap BUN Creatinine Estimated GFR/1.73 m2 Glucose Calcium Total Bilirubin AST ALT Alkaline Phosphatase Creatine Kinase Troponin I Cancelled Total Protein Albumin Lipase Urine Color Urine Clarity Urine pH Ur Specific [place] Urine Protein Urine Ketones Urine Blood Urine Nitrite Urine Bilirubin Urine Urobilinogen Ur Leukocyte Esterase Urine RBC Urine WBC Ur Epithelial Cells Urine Crystals Urine Bacteria Urine Casts Urine Mucus Urine Other Ur Culture Indicated? Urine Glucose COVID-19 Source SARS-CoV-2 (PCR) Influenza Type A (PCR) Influenza Type B (PCR) RSV (PCR) Last Vital Signs Temp 36.9 C 03/19/20 14:30 Pulse 64 03/19/20 17:14 Resp 15 03/19/20 17:14 BP 142/75 H 03/19/20 14:30 Pulse Ox 98 03/19/20 17:14 COVID-19 Screening Have you, or household traveled for leisure in last 14 days?: No Had IN PERSON contact w/suspected or confirmed C- person: No
[2020-03-20] VITALS (125 sets, daily range): BP systolic 76–135; BP diastolic 46–95; PULSE 53–95; RESP 12–43; TEMP 36.6–37; O2SAT 86–99
[2020-03-20] MEDS: Normal Saline 1,000 ML 30 ML IV (03:03)
[2020-03-20] MEDS: Lactated Ringers 1,000 ML 85 ML IV (04:26)
[2020-03-20 06:41] LABS: BE (Venous) 14 mmol/L (-2-3); HCO3 (Venous) 38 mmol/L (23-28); pCO2 (Venous) 51 mmHg (41-51); pH (Venous) 7.48 (7.31-7.41); pO2 (Venous) 144 mmHg
[2020-03-20 06:44] LABS: O2 Sat (Venous) > 99 %
[2020-03-20 06:45] LABS: Abs Immature Grans 0.01 10^3/uL (0.0-0.06); Absolute Basophil Count 0.02 10^3/uL (0.0-0.2); Absolute Eosinophil Count 0.03 10^3/uL (0.0-0.7); Absolute Lymphocyte Count 0.86 10^3/uL (1.2-3.4); Absolute Neutrophil Count 3.18 10^3/uL (1.2-6.7); Basophils % 0.4; Eosinophils % 0.7; HCT 38.4 % (40.0-50.0); HGB 11.8 g/dL (13.5-17.5); Immature Grans % 0.2; Lymphocytes % 18.7; MCH 30.8 pg (27.0-33.0); MCHC 30.7 % (32.0-36.0); MCV 100.3 fL (80-95); MPV 10.6 fL (8.0-11.0); Monocytes % 10.9; Neutrophils % 69.1; Nucleated RBC 0 %; Platelet Count 151 10^3/uL (130-400); RBC 3.83 10^6/uL (4.36-5.78); RDW 13.2 % (11.8-14.1); RDW-SD 48.7 fL
[2020-03-20 07:00] LABS: Anion Gap -0.6 mmol/L (3-11); BUN 28 mg/dL (7-18); CO2 36.6 mmol/L (21.0-32.0); CREATININE 0.76 mg/dL (0.70-1.30); Calcium 8.2 mg/dL (8.5-10.1); Chloride 106 mmol/L (98-107); Glucose 77 mg/dL (74-106); Potassium 4.1 mmol/L (3.5-5.1); Sodium 142 mmol/L (136-145)
[2020-03-20] MEDS: DEXTROSE 5%-0.9% SALINE 1,000 ML 75 ML IV ×2 (08:35→21:52)
[2020-03-20] MEDS: Refresh PLUS Eye Drops 0.4ml OP (08:59)
--- NOTE | 2020-03-20 09:09 | W.PM.PROGNOT ---
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 SPEP, CPK, aldolase, anti-MAG and and anti-GM1 antibodies pending; ordered by PCP on day of admission. Appears to have had a rapid decline in respiratory muscle strength. Palliative consulted (2) Respiratory failure with hypoxia and hypercapnia: Status: Acute Assessment and plan: Very significant hypercarbia and hypoxia on admission. BiPAP overnight with significant improvement. Now awake, A&O. He had a dx of IVONNE appx 10 years ago but never adjusted to a mask so hasn't used. He has had an inadvertent weight loss over the last year that may have resolved the apnea issue. Intermittent BiPAP depending on level of consciousness, mental status. Ongoing evaluation for supplemental oxygen needs d/t progressive resp muscle weakness. Qualifiers: Chronicity: acute Qualified Code(s): J96.01 - Acute respiratory failure with hypoxia; J96.02 - Acute respiratory failure with hypercapnia (3) Diabetes mellitus: Status: Chronic Assessment and plan: Hold oral meds. PRN insulin. He did have a low fingerstick glucose this AM of 67. D5NS initiated. Has a consistent carb diet; may alter according to ongoing glucose values. Subjective Subjective Patient reports: no new complaints, feels better, shortness of breath (with ambulating to commode) and afebrile Exam Const General: cooperative and no acute distress Nutritional Appearance: average body habitus Orientation: alert, oriented to person and oriented to place Limitations: mental status not altered [facility] Head: normocephalic and atraumatic Resp Effort & Inspection: normal respiratory effort Auscultation: clear to auscultation bilaterally Cardio Rate: regular rate Rhythm: regular rhythm Heart Sounds: S1 normal and S2 normal GI Palpation: soft and nontender Auscultation: normal bowel sounds Neuro General: patient alert and moves all extremities Cranial Nerves: PERRL Cognition: normal cognition Speech: speech normal Extrem General: no pedal edema and no calf tenderness Psych Appearance: grossly normal Mental Status: mental status grossly normal Affect: normal affect Objective Last Vital Signs Temp 37 C 03/20/20 06:35 Pulse 95 H 03/20/20 07:47 Resp 33 H 03/20/20 07:47 BP 96/67 L 03/20/20 07:47 Pulse Ox 94 03/20/20 07:47 Laboratory Results - last 24 hr 03/19/20 03/19/20 03/19/20 12:45 12:45 12:45 WBC 5.56 RBC 4.96 Hgb 15.1 Hct 50.3 H MCV 101.4 H MCH 30.4 MCHC 30.0 L RDW 13.2 Plt Count 233 MPV 10.9 Immature Gran % 0.4 Neutrophils % 64.5 Lymphocytes % 22.1 Monocytes % 11.9 Eosinophils % 0.4 Basophils % 0.7 Nucleated RBC % 0 Absolute Neutrophils 3.59 Absolute Lymphocytes 1.23 Absolute Monocytes 0.66 Absolute Eosinophils 0.02 Absolute Basophils 0.04 PT INR APTT ABG Sample Site ABG pH ABG pCO2 ABG pO2 ABG HCO3 ABG Total CO2 ABG O2 Saturation ABG Base Excess VBG pH VBG pCO2 VBG pO2 VBG HCO3 VBG Total CO2 VBG O2 Saturation VBG Base Excess Oxygen Liter Flow FiO2 Sodium 143 Potassium 4.4 Chloride 101 Carbon Dioxide 42.7 H Anion Gap -0.7 L BUN 31 H Creatinine 0.80 Estimated GFR/1.73 m2 >= 60.00 Glucose 138 H Calcium 8.8 Total Bilirubin 0.4 AST 16 ALT 21 Alkaline Phosphatase 47 Creatine Kinase Troponin I Total Protein 6.8 Albumin 3.6 Lipase 173 Urine Color Urine Clarity Urine pH Ur Specific [place] Urine Protein Urine Ketones Urine Blood Urine Nitrite Urine Bilirubin Urine Urobilinogen Ur Leukocyte Esterase Urine RBC Urine WBC Ur Epithelial Cells Urine Crystals Urine Bacteria Urine Casts Urine Mucus Urine Other Ur Culture Indicated? Urine Glucose COVID-19 Source SARS-CoV-2 (PCR) Influenza Type A (PCR) Influenza Type B (PCR) RSV (PCR) 03/19/20 03/19/20 03/19/20 12:45 12:45 12:45 WBC RBC Hgb Hct MCV MCH MCHC RDW Plt Count MPV Immature Gran % Neutrophils % Lymphocytes % Monocytes % Eosinophils % Basophils % Nucleated RBC % Absolute Neutrophils Absolute Lymphocytes Absolute Monocytes Absolute Eosinophils Absolute Basophils PT 11.0 INR 1.1 APTT 24.3 ABG Sample Site ABG pH ABG pCO2 ABG pO2 ABG HCO3 ABG Total CO2 ABG O2 Saturation ABG Base Excess VBG pH VBG pCO2 VBG pO2 VBG HCO3 VBG Total CO2 VBG O2 Saturation VBG Base Excess Oxygen Liter Flow FiO2 Sodium Potassium Chloride Carbon Dioxide Anion Gap BUN Creatinine Estimated GFR/1.73 m2 Glucose Calcium Total Bilirubin AST ALT Alkaline Phosphatase Creatine Kinase 15 L Troponin I < 0.05 Total Protein Albumin Lipase Urine Color Urine Clarity Urine pH Ur Specific [place] Urine Protein Urine Ketones Urine Blood Urine Nitrite Urine Bilirubin Urine Urobilinogen Ur Leukocyte Esterase Urine RBC Urine WBC Ur Epithelial Cells Urine Crystals Urine Bacteria Urine Casts Urine Mucus Urine Other Ur Culture Indicated? Urine Glucose COVID-19 Source SARS-CoV-2 (PCR) Influenza Type A (PCR) Influenza Type B (PCR) RSV (PCR) 03/19/20 03/19/20 03/19/20 13:10 13:35 14:00 WBC RBC Hgb Hct MCV MCH MCHC RDW Plt Count MPV Immature Gran % Neutrophils % Lymphocytes % Monocytes % Eosinophils % Basophils % Nucleated RBC % Absolute Neutrophils Absolute Lymphocytes Absolute Monocytes Absolute Eosinophils Absolute Basophils PT INR APTT ABG Sample Site Right radial ABG pH 7.13 L* ABG pCO2 > 100 H* ABG pO2 150 H ABG HCO3 ABG Total CO2 ABG O2 Saturation 99 H ABG Base Excess VBG pH VBG pCO2 VBG pO2 VBG HCO3 VBG Total CO2 VBG O2 Saturation VBG Base Excess Oxygen Liter Flow 2l nc FiO2 Sodium Potassium Chloride Carbon Dioxide Anion Gap BUN Creatinine Estimated GFR/1.73 m2 Glucose Calcium Total Bilirubin AST ALT Alkaline Phosphatase Creatine Kinase Troponin I Total Protein Albumin Lipase Urine Color Yellow Urine Clarity Sl cloudy Urine pH 5.5 Ur Specific [place] >= 1.030 H Urine Protein 100 H Urine Ketones Negative Urine Blood Small H Urine Nitrite Negative Urine Bilirubin Small H Urine Urobilinogen 1.0 H Ur Leukocyte Esterase Trace H Urine RBC >50 H Urine WBC >50 H Ur Epithelial Cells Few Urine Crystals Negative Urine Bacteria Many Urine Casts Urine Mucus Heavy Urine Other Few renal Ur Culture Indicated? Yes Urine Glucose Negative COVID-19 Source Nasopharynx SARS-CoV-2 (PCR) Negative Influenza Type A (PCR) Negative Influenza Type B (PCR) Negative RSV (PCR) Negative 03/19/20 03/19/20 03/19/20 14:30 16:58 17:59 WBC RBC Hgb Hct MCV MCH MCHC RDW Plt Count MPV Immature Gran % Neutrophils % Lymphocytes % Monocytes % Eosinophils % Basophils % Nucleated RBC % Absolute Neutrophils Absolute Lymphocytes Absolute Monocytes Absolute Eosinophils Absolute Basophils PT INR APTT ABG Sample Site Right radial Left radial ABG pH 7.15 L* 7.22 L ABG pCO2 > 100 H* > 100 H* ABG pO2 82 97 ABG HCO3 ABG Total CO2 ABG O2 Saturation 94 L 97 ABG Base Excess VBG pH VBG pCO2 VBG pO2 VBG HCO3 VBG Total CO2 VBG O2 Saturation VBG Base Excess Oxygen Liter Flow Bipap 13/5 Bipap 16/5 FiO2 32 32 Sodium Potassium Chloride Carbon Dioxide Anion Gap BUN Creatinine Estimated GFR/1.73 m2 Glucose Calcium Total Bilirubin AST ALT Alkaline Phosphatase Creatine Kinase Troponin I Cancelled Total Protein Albumin Lipase Urine Color Urine Clarity Urine pH Ur Specific [place] Urine Protein Urine Ketones Urine Blood Urine Nitrite Urine Bilirubin Urine Urobilinogen Ur Leukocyte Esterase Urine RBC Urine WBC Ur Epithelial Cells Urine Crystals Urine Bacteria Urine Casts Urine Mucus Urine Other Ur Culture Indicated? Urine Glucose COVID-19 Source SARS-CoV-2 (PCR) Influenza Type A (PCR) Influenza Type B (PCR) RSV (PCR) 03/20/20 03/20/20 03/20/20 06:33 06:33 06:33 WBC 4.60 RBC 3.83 L Hgb 11.8 L D Hct 38.4 L D MCV 100.3 H MCH 30.8 MCHC 30.7 L RDW 13.2 Plt Count 151 MPV 10.6 Immature Gran % 0.2 Neutrophils % 69.1 Lymphocytes % 18.7 Monocytes % 10.9 Eosinophils % 0.7 Basophils % 0.4 Nucleated RBC % 0 Absolute Neutrophils 3.18 Absolute Lymphocytes 0.86 L Absolute Monocytes 0.50 Absolute Eosinophils 0.03 Absolute Basophils 0.02 PT INR APTT ABG Sample Site ABG pH ABG pCO2 ABG pO2 ABG HCO3 ABG Total CO2 ABG O2 Saturation ABG Base Excess VBG pH 7.48 H VBG pCO2 51 VBG pO2 144 VBG HCO3 38 H VBG Total CO2 VBG O2 Saturation > 99 VBG Base Excess 14 H Oxygen Liter Flow FiO2 Sodium 142 Potassium 4.1 Chloride 106 Carbon Dioxide 36.6 H Anion Gap -0.6 L BUN 28 H Creatinine 0.76 Estimated GFR/1.73 m2 >= 60.00 Glucose 77 D Calcium 8.2 L Total Bilirubin AST ALT Alkaline Phosphatase Creatine Kinase Troponin I Total Protein Albumin Lipase Urine Color Urine Clarity Urine pH Ur Specific [place] Urine Protein Urine Ketones Urine Blood Urine Nitrite Urine Bilirubin Urine Urobilinogen Ur Leukocyte Esterase Urine RBC Urine WBC Ur Epithelial Cells Urine Crystals Urine Bacteria Urine Casts Urine Mucus Urine Other Ur Culture Indicated? Urine Glucose COVID-19 Source SARS-CoV-2 (PCR) Influenza Type A (PCR) Influenza Type B (PCR) RSV (PCR)
--- NOTE | 2020-03-20 10:25 | INITIAL_ITS ---
- If Service Date Differs Date of service: 03/20/20 Time of Service: 10:35 Care Management Initial Assess REASON FOR HOSPITALIZATION:: Hypercarbic respiratory failure, motor neuron disease, ALS PAST MEDICAL HISTORY/PAST SURGICAL HISTORY:: Abnormal weight loss, adenomatous colon polyp, allergic asthma without complication, dermatitis, essential hypertension, hyperlipidemia, LUTS, motor neuron disease, obesity, seborrheic dermatitis, urinary retention, vitamin D deficiency, TURP, colonoscopy, facial surgery PREVIOUS FUNCTIONAL STATUS/SOCIAL/FAMILY SUPPORTS:: Robert resides in [place], [place] with his , Destinee. More recently he has been experiencing an increase in neuro-muscular symptoms and respiratory issues. He has been referred to Neurology at the [facility], [facility] Neuromuscular clinic and Palliative Care. He met with his PCP who initiated home O2 with portable oxygen and a concentrator. Robert and his have two children and two grandchildren. CURRENT FUNCTIONAL STATUS:: Robert is presenting drastically differently this morning than when he arrived to [facility]. He is alert and oriented and not currently requiring O2 at rest, though MD reports with movement, Robert will continue to require the support of O2. ADVANCE DIRECTIVES:: On file at [facility]: Destinee as agent, Rito as alternate. Has patient been provided with info about the portal/API?: Yes Did the patient sign up for the portal?: No CODE STATUS:: DNR/DNI INSURANCE COVERAGE / FINANCIAL ISSUES:: MCR. [employer] CURRENT HOME/COMMUNITY SERVICES/EQUIPMENT:: Home O2, Palliative consult. PRIMARY CARE PHYSICIAN:: Simon Marshall DO. POTENTIAL DISCHARGE NEEDS:: Follow up appointments, respiratory evaluation for further needs/equipment-possible BIPAP/CPAP, evaluation for increased home services. PATIENT/FAMILY EDUCATION NEEDS:: Review discharge instructions, discuss Ask Me Three. ANTICIPATED BARRIERS TO DISCHARGE:: None identifed. TRANSPORTATION:: Via private vehicle with family. PLAN:: Anticipate Robert will return home when ready per MD. Undetermined if additional orders for DME/VNA services will be needed at this time. Robert has shown great improvement overnight in regard to O2 needs and mentation. Anticipate he will discharge with close follow up in the community and transport via private vehicle with family.
[2020-03-20] MEDS: Insulin Aspart 300 UNITS/3 ML PEN SC (12:00)
--- NOTE | 2020-03-20 13:08 | PHA.REVIEW ---
Pharmacy Admission Review - Admission Clinical Review (Last Reviewed 03/19/20 @ 22:54 by Wild Garner) Respiratory failure with hypoxia and hypercapnia (Acute) Respiratory failure (Acute) Motor neuron disease (Acute) yellow jacket venum Allergy (Severe, Uncoded 03/19/20 15:11) anaphylaxis Height 5 ft 6 in Weight 63 kg - Comments Comments/Follow Ups: doing better today, no O2 requirement at rest - Renal Dosing Renal Dosing: BUN 28 mg/dL (7-18) H 03/20/20 06:33 Creatinine 0.76 mg/dL (0.70-1.30) 03/20/20 06:33 Medications needing adjustments: Reviewed (CRCL ~71ML/MIN) - Anticoagulation Anticoagulation: Hgb 11.8 g/dL (13.5-17.5) L D 03/20/20 06:33 Hct 38.4 % (40.0-50.0) L D 03/20/20 06:33 Plt Count 151 10^3/uL (130-400) 03/20/20 06:33 INR 1.1 (0.9-1.1) 03/19/20 12:45 Creatinine 0.76 mg/dL (0.70-1.30) 03/20/20 06:33 DVT Prohphylaxis: Reviewed Medications: Enoxaparin Therapeutic Anticoagulation: N/A - Opiate Usage Evaluate Pain Scale/Pains Meds: N/A - Relevant Labs Sodium 142 mmol/L (136-145) 03/20/20 06:33 Potassium 4.1 mmol/L (3.5-5.1) 03/20/20 06:33 Chloride 106 mmol/L (98-107) 03/20/20 06:33 - DM Control DM Control: Glucose 77 mg/dL (74-106) D 03/20/20 06:33 Finger Stick Blood Glucose 169 Finger Stick Blood Glucose 169 Finger Stick Blood Glucose 74 Finger Stick Blood Glucose 74 Insulin Dosing: Reviewed (insulin aspart SS, IVF with D5 at this time) - Heart Failure/NH Heart Failure/NH: Troponin I Cancelled 03/19/20 17:59 - BP Control BP Control: Blood Pressure [Right Arm] 99/61 Blood Pressure 107/62 Blood Pressure 113/80 Blood Pressure 104/63 Blood Pressure 97/58 Blood Pressure 93/63 Blood Pressure 114/95 Blood Pressure 113/66 Blood Pressure 96/67 Blood Pressure 96/67 Blood Pressure 95/67 Blood Pressure 99/61 Blood Pressure 96/66 Blood Pressure 90/58 Blood Pressure 99/65 Blood Pressure 98/52 Blood Pressure 94/58 Blood Pressure 96/52 Blood Pressure 92/58 Blood Pressure 92/60 Blood Pressure 98/57 Blood Pressure 81/53 Blood Pressure 92/59 Blood Pressure 81/46 Blood Pressure 80/49 Blood Pressure 86/56 Blood Pressure 86/57 If elevated: N/A - IV to PO Switch IV Medications: Reviewed (IVF, meds PO) - Home Meds Relevent Home Meds Not ordered & why?: mirtazepine, trazodone, simvastatin, lisinopril, metformin all not ordered yet - Current meds Current Medication Order Review: Reviewed - Comments Comments/Follow Ups: expect home meds to be ordered
--- NOTE | 2020-03-20 14:51 | NUR.NOTE ---
I spoke with Dr. Glover on the patient's D/C plan. He wants to keep the patient over the weekend until we can ensure proper at home care items are in place on Sunday. We discussed the patient's probability of needing a Bipap or trilogy level of device at home instead of his CPAP. Dr. Glover pointed out that the patient should be educated to use minimal 02. D/C Plan: Pt wants to go home as soon as able. Sunday patient needs these items coordinated for discharge as soon as able: 1. Bipap vs. Trilogy 2. Home 02 use education (less use is better)Nursing Note:
[2020-03-20] MEDS: Enoxaparin 40 MG/0.4 ML SYR SC (18:16)
--- NOTE | 2020-03-20 18:16 | RESPIRATORY ---
03/20/2020-Pt stated he has a Cpap unit at home but, never could get comfortable on it . Dr. Glover requested to drop of for RT to review. was able to drop off home unit. This RT inspected it. The unit itself is clean and in good working condition. Cpap of 8cm h20 with a ramp of 20 noted. Pt states he had a sleep study at [facility] well over [address] Glover has requested a Trilogy set up for this Pt. This RT has gathered all the qualifying paperwork and has faxed to Marivel Greenberg at [facility].
[2020-03-21] VITALS (66 sets, daily range): BP systolic 93–144; BP diastolic 53–81; PULSE 51–71; RESP 12–33; TEMP 36.1–38.6; O2SAT 89–97
[2020-03-21] MEDS: Refresh PLUS Eye Drops 0.4ml OP (09:50)
[2020-03-21 11:27] LABS: Aldolase 20.2 U/L (<7.7)
[2020-03-21] MEDS: Insulin Aspart 300 UNITS/3 ML PEN SC (12:05)
--- NOTE | 2020-03-21 13:14 | PGE_ITS ---
Date of Service Date of service: 03/21/20 Time of Service: 09:15 Assessment and Plan Assessment and plan (1) Respiratory failure with hypoxia and hypercapnia: Status: Acute Assessment and plan: Secondary to respiratory muscle weakness from motor neuron disease / likely ALS Needs ventilation support prn and while asleep. No supplemental O2 needs currently. He is at high risk of hypercarbia with supplemental O2 if not ventilated along with the supplementation. Trilogy ordered for home use. Cough assist device ordered for home use. Qualifiers: Chronicity: acute Qualified Code(s): J96.01 - Acute respiratory failure with hypoxia; J96.02 - Acute respiratory failure with hypercapnia (2) Motor neuron disease: Status: Acute Assessment and plan: Likely ALS. His PCP has outstanding tests for more confirmation of a diagnosis. (3) Diabetes mellitus: Status: Chronic Assessment and plan: FSBS today of 101, 145, 141. Holding his metformin currently. SS insulin. Subjective Subjective Patient reports: no new complaints, feels better, tolerating a regular diet, shortness of breath (with exertion) and afebrile Exam Const General: cooperative, no acute distress and well groomed Nutritional Appearance: average body habitus [facility] Head: normocephalic and atraumatic Resp Effort & Inspection: normal respiratory effort Auscultation: clear to auscultation bilaterally Cardio Rate: regular rate Rhythm: regular rhythm Heart Sounds: S1 normal and S2 normal GI Palpation: soft and nontender Skin General skin exam: no rashes or lesions noted Neuro General: patient alert, patient oriented x3 and moves all extremities Extrem General: no pedal edema and no calf tenderness Objective Last Vital Signs Temp 36.1 C L 03/21/20 06:53 Pulse 58 L 03/21/20 08:01 Resp 27 H 03/21/20 09:50 BP 115/76 03/21/20 08:01 Pulse Ox 91 L 03/21/20 08:20
--- NOTE | 2020-03-21 13:27 | PDOC.CMPRO ---
Care Management Progress Note S/O: Robert continues to improve, and was moved out of ICU to the M/S floor today. CM continues to follow. A: 74 year old male admitted to [facility] 03/19/20 for Hypercarbic respiratory failure, ALS P: Robert will return home when ready per RT Radha is coordinating orders for Trilogy and reports that Robert's insurance will also provide coverage for cough assist. Robert will discharge with close follow up in the community and transport via private vehicle with family.
--- NOTE | 2020-03-21 14:29 | NUR.NOTE ---
Nursing Note: 03/21/20 1130: pt transferred from ICU to Med/Surg unit with 2 bags of belongings.
[2020-03-21] MEDS: Enoxaparin 40 MG/0.4 ML SYR SC (18:30)
[2020-03-22] VITALS (7 sets, daily range): BP systolic 144–159; BP diastolic 78–89; PULSE 58–71; RESP 13–18; TEMP 36–38.6; O2SAT 90–92
[2020-03-22] MEDS: Acetaminophen 325 MG TAB PO (00:19)
[2020-03-22] MEDS: Refresh PLUS Eye Drops 0.4ml OP (07:41)
--- NOTE | 2020-03-22 11:52 | W.PM.DS.N ---
Date of service: 03/22/20 Time of Service: 11:52 DS: Diagnosis Discharge Diagnosis (1) Respiratory failure with hypoxia and hypercapnia: Status: Acute (2) Motor neuron disease: Status: Acute (3) Diabetes mellitus: Status: Chronic Discharge Plan Disposition Patient Disposition: HOME Condition: Improving Discharge Details Reason For Visit: HYPERCARBIC RESPIRATORY FAILURE, ALS Admit Date/Time: 03/19/20 14:55 Admit Provider: Wild Garner Attending Provider: Wild Garner Primary Care Provider: Simon Marshall [facility] Course Hospital Course: This is a 74 yr old male w/ PMH of diabetes mellitus, HTN, atrial fibrillation, who was 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 Patient was transferred via EMS from Dr. Marshall's office ([facility]) due to rapid decreased level of consciousness. Per his , who is with him and provided details of his workup of his ALS, the patient began w/ symptoms of 100# wt loss since July 2019, and progressive weakness. His indicated that she took him to Dr. Salas who did NCT/EMG and diagnosed him w/ A.L.S. On day of this admission she took him to Dr. Marshall d/t increasing weakness. He was to have some additional testing to confirm the diagnosis. However when they went to leave he was somnolent, and unable to get up out of the chair. He was noted to be hypoxemic w SPO2 in the 70% range. She states that over the past week he went from walking and doing his own ADL's to being unable to open the cat food cans and feeing their cats. Upon arrival to the ER he was found to be able to open his eyes but otherwise was somnolent and workup revealed ph 7.11 and pCO2 >100 mm, CT head w/out contrast showed no acute intracranial pathology. CXR demonstrated right basilar atelectasis. Patient was put on BIPAP 15/5 cm and FiO2 of 32 %. Patient developed hypotensive w/ SBP in the 70's and bradycardia and recieved bolus of 1 L NS. Patient's indicated that he would not want to be intubated and put on mechanical ventilation particularly if it would not improve the quality of his life. However she agreed to trial of BIPAP. After > 24H on BiPAP his CO2 normalized and he was back to a normal baseline level of alertness and orientation. His further needs for ventilation will be met with a Trilogy non-invasive respiratory device that is to be set up in his home on the day of discharge. Upon discharge, he was requiring no supplemental O2. Should he eventually require supplemental O2, it will need to be given judiciously to avoid hypercarbia. Follow up with PCP in 1-2 weeks. Home Meds and New Rx's Prescriptions: Continued albuterol sulfate [ProAir HFA] 90 mcg/actuation HFA aerosol inhaler 2 puff IH Q6H PRN (Reason: shortness of breath or wheezing) Qty: 18 RF: 6 cholecalciferol (vitamin D3) 2,000 unit capsule 2,000 unit PO DAILY RF: 0 aspirin 81 MG tablet,delayed release (DR/EC) 81 mg PO DAILY RF: 0 Systane (propylene glycol) 5 ML drops 5 ml Ophthalmic DAILY RF: 0 cetirizine [Zyrtec] 10 MG tablet 10 mg PO DAILY PRNQty: 90 RF: 3 acetaminophen 500 MG tablet 1,000 mg PO Q8H PRN MDD 3000 Qty: 90 RF: 0 triamcinolone acetonide 15 GM cream 1 wilma Topical BID Qty: 454 RF: 3 docusate sodium 100 MG capsule 200 mg PO DAILY PRNQty: 180 RF: 3 Ketoconazole 15 GM CREAM..G. 15 gm Topical BID Qty: 4 RF: 3 (DME) OneTouch Ultra Blue Test Strip Strip See Dose Instructions .ROUTE .MEDSUPPLY Qty: 100 RF: 6 (DME) lancets [OneTouch Delica Lancets] 33 gauge misc 1 ea Miscellaneous DAILY Qty: 100 RF: 6 lisinopril 10 mg tablet 10 mg PO DAILY Qty: 90 RF: 3 simvastatin 40 mg tablet 40 mg PO DAILY Qty: 90 RF: 3 metformin 500 mg tablet extended release 24 hr 1,000 mg PO BID Qty: 180 RF: 3 Discharge Instructions Instructions: Amyotrophic Lateral Sclerosis (DC) Stand Alone Forms: Nursing Discharge Form Referrals: Simon Marshall DO [Primary Care Provider] - 03/29/20 10:00 am Activity:: Activity as Tolerated Equipment/Supplies:: Trilogy Diet:: Normal Diet Discharge Orders Discharge Orders: Discharge Order (Routine); Ordered 03/22/20 Ordered By: Alok Glover Discharge Data Discharge Date/Time-TO BE ENTERED AT DEPARTURE: 03/22/20 13:14 DS: Summary Status at Discharge Functional status at discharge: independent ambulation Overall status at discharge: patient is not back to baseline Mental Status: mental status grossly normal Speech and Movement: speech and movement normal Mood: congruent mood Affect: normal affect Exam Const General: cooperative and no acute distress Nutritional Appearance: average body habitus Neck Neck: full ROM and no JVD Resp Effort & Inspection: normal respiratory effort Auscultation: clear to auscultation bilaterally Cardio Rate: regular rate Rhythm: regular rhythm Heart Sounds: S1 normal and S2 normal GI Palpation: soft and nontender Neuro General: patient alert, patient oriented x3, moves all extremities and no focal motor deficits Cognition: normal cognition Speech: speech normal Extrem General: no pedal edema and no calf tenderness Psych Mental Status: mental status grossly normal Speech and Movement: speech and movement normal Mood: congruent mood Affect: normal affect DS: Data Vitals/I&O Vitals and I&O: Vital Signs Temperature 36.5 C 03/22/20 07:43 Temperature Source Tympanic 03/22/20 07:43 Pulse 71 03/22/20 07:43 Pulse Rhythm Regular 03/22/20 07:45 Pulse 69 03/21/20 09:50 Respiratory Rate 18 03/22/20 07:43 Respiratory Effort Non-Labored 03/22/20 07:45 Respiratory Depth Normal 03/22/20 07:45 Respiratory Pattern Normal 03/22/20 07:45 Blood Pressure 159/89 H 03/22/20 07:43 Blood Pressure Mean 85 03/21/20 08:01 Blood Pressure Position Supine 03/21/20 06:53 Pulse Oximetry 90 L 03/22/20 07:43 Oxygen Delivery Method Room Air 03/22/20 07:43 Oxygen Flow Rate 0 03/22/20 07:43 Fraction of Inspired Oxygen (FIO2) 21 03/22/20 09:35 Pain Level 0 03/22/20 07:43 Comment 03/22/20 07:43 Intake & Output 03/21/20 03/21/20 03/22/20 11:59 23:59 11:59 Intake Total 1203.75 / 1803.75 600 / 1803.75 240 / 240 Output Total 650 / 650 Balance 553.75 / 1153.75 600 / 1153.75 240 / 240 Weight 64.4 kg 63.4 kg Intake: IV 903.75 / 903.75 Oral 300 / 900 600 / 900 240 / 240 Output: Urine 650 / 650 Other: Urine Color Yellow Yellow Urine Appearance Clear Clear Urine Odor Normal Normal Comment Pt reports prior that he has little to no sensation of when he needs to void. He usually just tries every few hours. pt voiding independently. Stool Size Small Stool Characteristics Formed Brown Voiding Methods Bedside Commode Toilet Toilet Data Completed and Pending Labs on day of discharge: Labs from last 24 hours 03/19/20 12:45 Aldolase 20.2 H 03/22/20 01:02 Blood Blood Culture - Pending 03/22/20 01:02 Blood Blood Culture - Pending Preliminary micro results at discharge 03/22/20 01:02 Blood Culture - Pending Blood 03/22/20 01:02 Blood Culture - Pending Blood [facility] Medical History Abnormal weight loss Adenomatous colon polyp adenoma at 70 cm, also at transverse 2009, Fede Dorado; 02/2016: 11 of 11 polyps adenomatous (Dr. Morgan) Allergic asthma without complication (05/25/11) normal PFT 2003; h/o wheezing with occupational and seasonal exposures Dermatitis (09/14/14) ankle, chronic R>L Essential hypertension (07/03/00) rx begun 2000 BP 142/90 and ? of prior TIA Hyperlipidemia LDL goal <100 (03/05/02) Rx begun 2002 for vasc risk calculated 10% plus h/o ? TIA (diplopia 1997), pos FH; goal LDL 100 Lower urinary tract symptoms (LUTS) (11/13/07) urgency, nocturia varies Motor neuron disease Obesity (BMI 30-39.9) (01/04/15) stable at 35 (wt 220) Seborrheic dermatitis (09/14/14) wade, face, ear Urinary retention Vitamin D deficiency Surgical History History of colonoscopy History of facial surgery due to chain saw accident. Family History Mother Diabetes Alzheimer's dementia Father Myocardial infarction Sister No problems noted. Sister No problems noted. Brother Diabetes Brother No problems noted. Brother No problems noted. Social History Smoking/Tobacco Use Status: Never Smoking risk assessment performed?: Yes Alcohol Intake: never Drug use: Never Adopted: No Household members: spouse Housing: house Number of Children: 2 number of grandchildren: 2 Communication Needs: Corrective Lenses Do you need help understanding health information?: Rarely current occupation: retired Current gender identity: male What is your relationship status?: How often do you talk on the phone with friends or family?: twice per week How often do you get together with friends or relatives?: decline to answer How often do you attend rastafari or sabianist services?: decline to answer Do you belong to any clubs or organized social groups?: no Panel score (0-1 are the most socially isolated patients): 1 What type of physical activity do you participate in: walking Duration: 15-30 minutes/day Frequency: daily Seatbelt use: always Helmet use: No Drive intox or ride w/intox cdl b driver: No Working smoke detector in home: Yes Carbon monox detector in home: Yes Do you feel safe at home: Yes Do you feel safe in your relationship?: Yes
[2020-03-22 12:44] LABS: Albumin 60.6 % (55.8-66.1); Total Protein 6.5 g/dL (6.3-8.2)
--- NOTE | 2020-03-22 17:30 | PDOC.CMDIS ---
- If Service Date Differs Date of service: 03/22/20 Time of Service: 17:30 LACE Index Scoring Tool - Questions: Length of Stay (in days): 4 - 6 Acuity (Admit via E.D.?): Yes Comorbidities: Diabetes w/o Complication E.D. Visits: 1 - Answers: Total Score: 9 Risk of Readmission: Low Risk Care Management Discharge Reason for Hospitalization: Hypercarbic respiratory failure, motor neuron disease, ALS Discharge Plan: Robert will return home with no additional services today. [facility] will meet him at home to deliver his Trilogy machine, which he qualified for during this admission. He will follow up with his PCP and discharge plan of care. He was driven home via private vehicle by family. Patient/Family Education Needs: Review discharge instructions regarding activity, new equipment, and medications, discussion of self care needs inculding ask me three. Services Needed at Discharge: Respiratory Therapy (Trilogy, [facility])
[2020-04-05 10:01] LABS: IgG Asialo. GM1 Negative (Negative); IgG Disialo. GD1b Negative (Negative); IgG Monos. GM1 Negative (Negative); IgM Asialo. GM1 Negative (Negative); IgM Monos. GM1 Negative (Negative)
[2020-04-05 10:03] LABS: IgM Disialo. GD1b Negative (Negative)
[2020-04-05 10:15] LABS: MAG w/Reflex to MAG-SGPG & MAG Negative (Negative)
[2020-04-13 08:12] LABS: pCO2 > 100 mmHg (35-45)
== END 2020-03-22 13:14 | disposition home or self-care (01) | DRG 56 ==
LOC: ER 16:00 → MS 03-22 09:23 → ICU 03-22 09:24 → MS 03-22 09:25
PROVIDERS: Emergency Medicine; Admitting Provider Internal Medicine; Emergency Provider Physician Assistant; PCP Family Medicine; Visit Provider Internal Medicine
DX: G12.20 Motor neuron disease, unspecified (principal); J96.01 Acute respiratory failure with hypoxia; J96.02 Acute respiratory failure with hypercapnia; G12.21 Amyotrophic lateral sclerosis; E11.9 Type 2 diabetes mellitus without complications; I10 Essential (primary) hypertension; I48.91 Unspecified atrial fibrillation; E78.5 Hyperlipidemia, unspecified; E55.9 Vitamin D deficiency, unspecified; R33.9 Retention of urine, unspecified; Z79.84 Long term (current) use of oral hypoglycemic drugs
CPT/HCPCS: 36415; 36416; 80048; 80053; 82550; 82805; 82962; 83690; 87040; 93005; 96360; 96361; 99222; 99232; 99233; 99239; 99291; J1650; 36600; 70450; 71045; 81003; 81015; 82085; 83520; 84165; 84181; 84484; 85025; 85610; 85730; 87086; 93010; 94660; J7042

== ENCOUNTER 2020-03-23 02:48 | Outpatient (CLI) | payer MEDICARE, OTHER, SELFPAY ==
[2020-03-24 17:17] LABS: COVID-19 RT-PCR UVMMC Result Negative (Negative)
== END 2020-03-23 03:08 ==
PROVIDERS: PCP Family Medicine; Visit Provider Family Medicine
DX: Z11.52 Encounter for screening for COVID-19 (principal); Z01.811 Encounter for preprocedural respiratory examination
CPT/HCPCS: U0003

== ENCOUNTER 2020-03-26 00:26 | Outpatient (CLI) | payer MEDICARE, OTHER, SELFPAY ==
--- NOTE | 2020-03-29 14:50 | W.PFT ---
Date of service: 03/26/20 Time of Service: 08:10 Pulmonary Function Test Result Interpretation Spirometry: No evidence of obstructive airways disease, no significant bronchodilator response. Respiratory neuromuscular function testing shows very severely reduced expiratory and inspiratory respiratory neuromuscular function, MIP and MEP are reduced to 19 and 21% predicted, respectively Lung Volumes: No evidence of restriction Diffusion Capacity: Mildly reduced which is normal when corrected to alveolar volume Airway Pressure: Normal Impression No evidence of obstructive or restrictive lung disease. The mild diffusion defect is likely related to respiratory neuromuscular dysfunction. Respiratory muscle function is severely reduced at MIP 19% and MEP 21% predicted Clinical Correlation therefore is recommended.
== END 2020-03-26 00:46 ==
PROVIDERS: PCP Family Medicine; Visit Provider Family Medicine
DX: G12.29 Other motor neuron disease (principal); R06.09 Other forms of dyspnea
CPT/HCPCS: 94060; 94726; 94729; 94762

== ENCOUNTER → 2020-05-25 09:40 | Outpatient (BNVA) | payer MEDICARE, SELFPAY | PROVIDERS: PCP Family Medicine; Referring Provider Family Medicine; Visit Provider Nurse Practitioner Gerontology | DX: R33.8 Other retention of urine (principal) | CPT/HCPCS: 99442 ==

== ENCOUNTER 2020-06-17 03:16 | Outpatient (CLI) | payer MEDICARE, OTHER, SELFPAY ==
[2020-06-17 10:04] LABS: ALT 36 U/L (16-63); AST 32 U/L (15-37); Albumin 3.6 g/dL (3.4-5.0); Alkaline Phosphatase 78 U/L (46-116); Anion Gap 5.2 mmol/L (3-11); BUN 26 mg/dL (7-18); Bilirubin, Total 0.7 mg/dL (0.2-1.0); CO2 32.8 mmol/L (21.0-32.0); CREATININE 0.8 mg/dL (0.70-1.30); Calcium 9.5 mg/dL (8.5-10.1); Chloride 105 mmol/L (98-107); Glucose 97 mg/dL (74-106); Potassium 4.4 mmol/L (3.5-5.1); Sodium 143 mmol/L (136-145); Total Protein 6.7 g/dL (6.4-8.2)
== END 2020-06-17 03:17 | disposition home or self-care (01) ==
LOC: LBO 03:16
PROVIDERS: PCP Family Medicine; Visit Provider Family Medicine
DX: G12.21 Amyotrophic lateral sclerosis (principal); Z51.81 Encounter for therapeutic drug level monitoring
CPT/HCPCS: 36415; 80053

== ENCOUNTER → 2020-08-24 10:29 | Outpatient (BNVA) | payer MEDICARE, OTHER, SELFPAY | PROVIDERS: PCP Family Medicine; Referring Provider Family Medicine; Visit Provider Nurse Practitioner Gerontology | DX: R33.9 Retention of urine, unspecified (principal); Z98.890 Other specified postprocedural states | CPT/HCPCS: 99213 ==

== ENCOUNTER 2020-12-17 02:34 | Outpatient (CLI) | payer MEDICARE, OTHER, SELFPAY ==
[2020-12-17 13:57] LABS: HCT 42.6 % (40.0-50.0); HGB 13.6 g/dL (13.5-17.5); MCH 30.9 pg (27.0-33.0); MCHC 31.9 % (32.0-36.0); MCV 96.8 fL (80-95); MPV 9.6 fL (8.0-11.0); Platelet Count 210 10^3/uL (130-400); RDW 13.2 % (11.8-14.1); RDW-SD 47.6 fL; WBC 4.79 10^3/uL (4.4-10.8)
[2020-12-17 14:09] LABS: Hemoglobin A1C 5.1 % (<5.7)
[2020-12-17 15:14] LABS: ALT 19 U/L (16-63); AST 18 U/L (15-37); Albumin 3.5 g/dL (3.4-5.0); Alkaline Phosphatase 66 U/L (46-116); Anion Gap 5.2 mmol/L (3-11); BUN 17 mg/dL (7-18); Bilirubin, Total 0.6 mg/dL (0.2-1.0); CO2 32.8 mmol/L (21.0-32.0); CREATININE 0.9 mg/dL (0.70-1.30); Calcium 8.8 mg/dL (8.5-10.1); Chloride 107 mmol/L (98-107); Glucose 132 mg/dL (74-106); Potassium 4.5 mmol/L (3.5-5.1); Sodium 145 mmol/L (136-145); TSH (W/Ref FT4) 1.69 uIU/mL (0.36-3.74); Total Protein 6.5 g/dL (6.4-8.2)
== END 2020-12-17 02:35 | disposition home or self-care (01) ==
LOC: LBO 02:34
PROVIDERS: PCP Family Medicine; Visit Provider Family Medicine
DX: E11.9 Type 2 diabetes mellitus without complications; Z51.81 Encounter for therapeutic drug level monitoring; G12.21 Amyotrophic lateral sclerosis; Z09 Encounter for follow-up examination after completed treatment for conditions other than malignant neoplasm; E55.9 Vitamin D deficiency, unspecified
CPT/HCPCS: 36415; 80053; 85027; 83036; 84443

== ENCOUNTER → 2021-02-23 10:16 | Outpatient (BNVA) | payer MEDICARE, OTHER, SELFPAY | PROVIDERS: PCP Family Medicine; Visit Provider Nurse Practitioner Gerontology | DX: R33.9 Retention of urine, unspecified (principal); G12.21 Amyotrophic lateral sclerosis | CPT/HCPCS: 99214 ==

== ENCOUNTER → 2021-07-06 16:41 | Outpatient (CLI) | payer MEDICARE, OTHER, SELFPAY ==
--- NOTE | 2021-07-06 10:45 | DI.RAD_ITS ---
Exam(s) XR HIP RT COMPLETE AP PELVIS EXAM: XR HIP RT COMPLETE AP PELVIS CLINICAL HISTORY: RT hip pain, M25.551 - Low back pain, M54.50 - ALS, G12.21. TECHNIQUE: 2D digital imaging was performed. Two views. COMPARISON: No exams were available for comparison FINDINGS: BONES: No acute fracture is present. No bony destructive lesion is seen. JOINTS: No dislocation present. Hip joint spaces well maintained. Minimal acetabular spurring. SI j oints unremarkable. SOFT TISSUE: Normal. IMPRESSION: Unremarkable radiographs of the right hip. Unremarkable radiographs of the pelvis DATA REPOSITORY: RADIATION DOSE DELIVERED:
--- NOTE | 2021-07-06 10:45 | DI.RAD_ITS ---
Exam(s) XR LUMBAR SPINE COMPLETE EXAM: XR LUMBAR SPINE COMPLETE CLINICAL HISTORY: RT hip pain, M25.551 - Low back pain, M54.50 - ALS, G12.21. TECHNIQUE: 2D digital imaging was performed. Five views. COMPARISON: No exams were available for comparison FINDINGS: BONES: No fracture or destructive lesion. Vertebral bodies are normal in height.. Mild L4-5 and L5-S 1 facet hypertrophy identified. DISKS: Moderate narrowing of the L5-S1 disc. Small endplate osteophytes. Remaining intervertebral d isc spaces are maintained. ALIGNMENT: Lumbar spinal alignment is within normal limits. SOFT TISSUE: Normal. IMPRESSION: Degenerative changes greatest at L5-S1. DATA REPOSITORY: RADIATION DOSE DELIVERED:
== END ==
PROVIDERS: PCP Family Medicine; Visit Provider Family Medicine
DX: M54.59 Other low back pain (principal); M25.551 Pain in right hip; M51.37 Other intervertebral disc degeneration, lumbosacral region; M47.817 Spondylosis without myelopathy or radiculopathy, lumbosacral region; G12.21 Amyotrophic lateral sclerosis
CPT/HCPCS: 72110; 73502

== ENCOUNTER → 2021-08-24 14:50 | Outpatient (BNVA) | payer MEDICARE, OTHER, SELFPAY | PROVIDERS: PCP Family Medicine; Referring Provider Family Medicine; Visit Provider Nurse Practitioner Gerontology | DX: R33.8 Other retention of urine (principal) | CPT/HCPCS: 51798; 99214 ==

== ENCOUNTER 2021-12-15 13:40 | Outpatient (CLI) | payer MEDICARE, OTHER, SELFPAY | END 2021-12-15 13:41 | disposition home or self-care (01) | LOC: DIORS 13:40 | PROVIDERS: PCP Family Medicine; Referring Provider Family Medicine; Visit Provider Physician Assistant Surgical | DX: M16.11 Unilateral primary osteoarthritis, right hip (principal) | CPT/HCPCS: 99213 ==

== ENCOUNTER → 2021-12-22 03:03 | Outpatient (CLI) | payer MEDICARE, OTHER, SELFPAY ==
--- NOTE | 2021-12-22 14:56 | W.PROCNOTE ---
Date of service: 12/22/21 Time of Service: 14:56 Procedure Note Date of procedure: 12/22/21 Procedure: Right Hip Injection with Fluoroscopic Guidance Surgeon/Proceduralist/Physician: Bud Martinez Procedure Diagnosis: Right Hip Pain Procedure Indications: Robert has had persistent pain of the RIGHT hip and groin. Noninvasive measures have been tried. To serve as both diagnostic and therapeutic, an injection under fluoroscopy was recommended. I had discussed the risks of the procedure and the patient elected to proceed. Procedure Description: Robert was greeted in the flouroscopy room. The correct side was identified and the consent was reviewed with the patient and signed. The patient was then placed in the supine position on the fluoroscopy table. The RIGHT hip was then prepped with Chloraprep. The anterolateral injection starting point was identiifed by bony landmarks and fluoroscopy. The skin and soft tissue in the tract of the injection was anesthetized with 1% Lidocaine. A spinal needle was then inserted deep into the hip joint at the level of the lateral femoral neck under fluoroscopic guidance. A small amount of Omnipaque solution was injected to confirm intraarticular placement. Once confirmed, the hip was injected with 5cc of 0.5% Bupivicaine and 80mg of Depo-Medrol. A bandaid was placed on the injection site. The patient tolerated the procedure well. He will track his pain and update the office.
[2021-12-22] MEDS: methylPREDNISolone ACETATE 80 MG/ML VIAL IJ (14:59)
[2021-12-22] MEDS: Bupivacaine 0.5% Pres-Free 10 ML VIAL 5 ML IJ (15:00)
[2021-12-22] MEDS: Omnipaque 300 MG/ML 10 ML BTL IJ (15:00)
--- NOTE | 2021-12-22 15:00 | DI.RAD_ITS ---
Exam(s) RF JOINT INJECTION FLUORO GUID EXAM: RF JOINT INJECTION FLUORO GUID CLINICAL HISTORY: R HIP INJ UNDER FLUORO,djd rt hip, m16.11, oa TECHNIQUE: 2D and realtime digital imaging was performed. COMPARISON: No exams were available for comparison FINDINGS: Fluoroscopy is utilized by Dr. Martinez during right hip injection. Hard copy shows intra-articular injection in the right hip. IMPRESSION: RADIATION DOSE DELIVERED: zarina Crenshaw=0.24 mGy Total DLP
== END ==
PROVIDERS: PCP Family Medicine; Visit Provider Student in an Organized Health Care Education/Training Program
DX: M16.11 Unilateral primary osteoarthritis, right hip (principal); M25.551 Pain in right hip
CPT/HCPCS: 20610; 77002; J1040